=== PATIENT | male | born 1955 | race American Indian/Alaskan Native ===

== ENCOUNTER 2016-07-13 10:38 | Emergency (ER) | payer SELFPAY ==
[2016-07-13 11:34] VITALS: BP 181/107
[2016-07-13] MEDS ORDERED: NORCO 5/325 PO ONE (16:00)
[2016-07-13] MEDS ORDERED: XYLOCAINE 2% INFILTRATI ONE (16:01)
--- NOTE | 2016-07-13 16:05 | Emergency Department Report ---
Abscess Boil HPI - HPI Chief Complaint: Wound/Laceration Stated Complaint: PAINFUL LUMP ON CHEST/PUSS Time Seen by Provider: 07/13/16 15:45 Duration: >1 Week Location: Chest (left breast region) Severity: Severe History: Yes Pain, No Fever, No Purulent Drainage, No Numbness, No Foreign Body , No Previous History, No Insect Bite HPI: 60-year-old male who presents with a painful mass on his left breast area. Patient states he's had a mass there for about a year but up until a week ago it started to get bigger and painful. Patient denies any draining from the mass. Patient denies getting stronger bit by any insect. Patient describes pain as throbbing severe pain 10 out of 10 intensity that is tender to touch. Home Medications: Previous Rx's Medication Instructions Recorded Last Taken Type Atenolol [Tenormin] 25 mg PO DAILY #30 tab 11/30/14 Unknown Rx Hydrochlorothiazide [Hctz] 25 mg PO QDAY #30 tablet 11/30/14 Unknown Rx Ketoconazole 2% [Nizoral] 1 applicatio TP QDAY #15 gm 11/30/14 Unknown Rx Tolnaftate [Tinactin] 1 applicatio TP BID #133 gm 11/30/14 Unknown Rx traMADol [Ultram] 50 mg PO Q6HR PRN #20 tablet 11/30/14 Unknown Rx Cyclobenzaprine [Flexeril] 10 mg PO TID PRN #30 tablet 12/05/15 Unknown Rx oxyCODONE /ACETAMINOPHEN [Percocet 1 tab PO Q6HR PRN #30 tablet 12/05/15 Unknown Rx 5/325] Cephalexin [Keflex] 500 mg PO BID #14 capsule 07/13/16 Unknown Rx Ibuprofen [Motrin] 800 mg PO Q8HR PRN #30 tablet 07/13/16 Unknown Rx Allergies/Adverse Reactions: Allergies Allergy/AdvReac Type Severity Reaction Status Date / Time clarithromycin [From Biaxin] Allergy Unknown Verified 07/13/16 11:32 ED Review of Systems ROS: Stated complaint: PAINFUL LUMP ON CHEST/PUSS Other details as noted in HPI Constitutional: denies: chills, fever Eyes: denies: eye pain, eye discharge, vision change ENT: denies: ear pain, throat pain, dental pain, hearing loss Respiratory: denies: cough, orthopnea, shortness of breath, wheezing Cardiovascular: denies: chest pain, palpitations Endocrine: no symptoms reported Gastrointestinal: denies: abdominal pain, nausea, diarrhea Genitourinary: denies: urgency, dysuria Musculoskeletal: denies: back pain, joint swelling, arthralgia, myalgia Skin: denies: rash, lesions Neurological: denies: headache, weakness, paresthesias, confusion, abnormal gait Psychiatric: denies: anxiety, depression Hematological/Lymphatic: denies: easy bleeding, easy bruising ED Past Medical Hx - Past Medical History Hx Hypertension: Yes Hx Liver Disease: Yes (Hep C) - Surgical History Past Surgical History?: No - Social History Smoking Status: Current Every Day Smoker Substance Use Type: None - Medications Home Medications: Home Medications Medication Instructions Recorded Confirmed Last Taken Type Atenolol [Tenormin] 25 mg PO DAILY #30 tab 11/30/14 Unknown Rx Hydrochlorothiazide [Hctz] 25 mg PO QDAY #30 tablet 11/30/14 Unknown Rx Ketoconazole 2% [Nizoral] 1 applicatio TP QDAY #15 gm 11/30/14 Unknown Rx Tolnaftate [Tinactin] 1 applicatio TP BID #133 gm 11/30/14 Unknown Rx traMADol [Ultram] 50 mg PO Q6HR PRN #20 tablet 11/30/14 Unknown Rx Cyclobenzaprine [Flexeril] 10 mg PO TID PRN #30 tablet 12/05/15 Unknown Rx oxyCODONE /ACETAMINOPHEN [Percocet 1 tab PO Q6HR PRN #30 tablet 12/05/15 Unknown Rx 5/325] Cephalexin [Keflex] 500 mg PO BID #14 capsule 07/13/16 Unknown Rx Ibuprofen [Motrin] 800 mg PO Q8HR PRN #30 tablet 07/13/16 Unknown Rx ED Abscess Boil Physical Exam - Exam General: Vital signs noted. No distress. Alert and acting appropriately. Size: 5 cm Exam: Yes Tenderness, Yes Fluctuance, Yes Normal Neurologic Exam, Yes Normal Circulation, No Surrounding Cellulites/Erythema, No Lymphangitis, No Crepitation , No Heart Murmur ED Course Vital Signs 07/13/16 11:32 Temperature 98.6 F Pulse Rate 66 Respiratory 17 Rate Blood Pressure 181/107 O2 Sat by Pulse 99 Oximetry Critical care attestation.: If time is entered above; I have spent that time in minutes in the direct care of this critically ill patient, excluding procedure time. ED Medical Decision Making - Medical Decision Making 60-year-old male presents with breast abscess. ED course: Patient left and told ebony Reynoso that he would return tomorrow to get his abscess drained. Edgardo relayed the message to me. I was not aware until patient had left that he left. ED Disposition Clinical Impression: Breast abscess in male Disposition: ELOPED Is pt being admited?: No Does the pt Need Aspirin: No Condition: Stable Instructions: Abscess (ED), Abscess Incision and Drainage (ED) Prescriptions: Cephalexin [Keflex] 500 mg PO BID #14 capsule Ibuprofen [Motrin] 800 mg PO Q8HR PRN #30 tablet PRN Reason: Pain Referrals: PRIMARY CARE, [Primary Care Provider] - 3-5 Days Forms: Work/School Release Form(ED)
== END 2016-07-13 16:50 | disposition left against medical advice (07) ==
LOC: ED 10:38
DX: N61.1 Abscess of the breast and nipple (principal); I10 Essential (primary) hypertension; F17.200 Nicotine dependence, unspecified, uncomplicated
CPT/HCPCS: 99281

== ENCOUNTER 2016-10-02 22:39 | Emergency (ER) | payer SELFPAY ==
[2016-10-02 23:45] VITALS: BP 175/110
== END 2016-10-03 02:09 | disposition left against medical advice (07) ==
LOC: ED 22:39
DX: S01.91XA Laceration without foreign body of unspecified part of head, initial encounter (principal); X58.XXXA Exposure to other specified factors, initial encounter; Y93.9 Activity, unspecified; Y92.9 Unspecified place or not applicable; Y99.9 Unspecified external cause status; Z53.21 Procedure and treatment not carried out due to patient leaving prior to being seen by health care provider

== ENCOUNTER 2018-01-28 13:25 | Emergency (ER) | payer SELFPAY ==
[2018-01-28 14:07] VITALS: BP 164/98
[2018-01-28] MEDS ORDERED: NORCO 5/325 PO ONE (16:58)
--- NOTE | 2018-01-28 17:02 | Emergency Department Report ---
Chief Complaint: Pain General Stated Complaint: KNEE PAIN Time Seen by Provider: 01/28/18 16:57 - HPI History of Present Illness: 62 year-old male presents to the emergency department with a complaint of left knee pain that has been going on and getting progressively worse over the past 1-1.5 months. He denies any specific trauma to the knee. He has been trying [id number]-inowqtu medications without any relief. There is some swelling. He is able to ambulate but it makes it difficult. He does not have a primary care physician. - ROS Review of Systems: Positive for left knee pain and swelling Negative for skin color change, lesions - Exam Vital Signs: Vital Signs 01/28/18 14:02 Temperature 98.4 F Pulse Rate 90 Respiratory 16 Rate Blood Pressure 164/98 O2 Sat by Pulse 100 Oximetry Physical Exam: Left anterior knee is tender to palpation. Mild anterior swelling. Negative anterior and posterior drawer test. No laxity with valgus or varus stress. MSE screening note: Focused history and physical exam performed. Due to findings the following was ordered: X-ray of the left knee has been ordered and the patient has been given a [place] for discomfort. ED Disposition for MSE Condition: Stable Referrals: PRIMARY CARE [Primary Care Provider] - 3-5 Days
--- NOTE | 2018-01-28 19:08 | XRay Report ---
FINAL REPORT EXAM: XR KNEE 3V LT HISTORY: L Knee pain TECHNIQUE: Left knee three views PRIORS: None. FINDINGS: No fracture is identified. No dislocation seen. No evidence of joint effusion. Patella demonstrates normal positioning. No acute bony abnormality identified. IMPRESSION: Negative knee series
--- NOTE | 2018-01-28 19:50 | Emergency Department Report ---
ED General Adult HPI - General Chief complaint: Pain General Stated complaint: KNEE PAIN Time Seen by Provider: 01/28/18 16:57 Source: patient Mode of arrival: Ambulatory Limitations: Physical Limitation - History of Present Illness Initial comments: 62 year-old male presents to the emergency department with a complaint of left knee pain that has been going on and getting progressively worse over the past 1-1.5 months. He denies any specific trauma to the knee. He has been trying hwvh-esl-[id number] medications without any relief. There is some swelling. He is able to ambulate but it makes it difficult. He does not have a primary care physician. Onset/Timin -: month(s) Location: lower extremity (left knee ) Severity scale (0 -10): 9 Quality: aching, sharp Consistency: intermittent Improves with: rest Worsens with: movement, other (prolong standing sitting climbing stairs ) Associated Symptoms: denies: confusion, chest pain, cough, diaphoresis, fever/ chills, loss of appetite, malaise, nausea/vomiting, syncope, weakness Treatments Prior to Arrival: none - Related Data Previous Rx's Medication Instructions Recorded Last Taken Type Atenolol [Tenormin] 25 mg PO DAILY #30 tab 11/30/14 Unknown Rx Hydrochlorothiazide [Hctz] 25 mg PO QDAY #30 tablet 11/30/14 Unknown Rx Ketoconazole 2% [Nizoral] 1 applicatio TP QDAY #15 gm 11/30/14 Unknown Rx Tolnaftate [Tinactin] 1 applicatio TP BID #133 gm 11/30/14 Unknown Rx traMADol [Ultram] 50 mg PO Q6HR PRN #20 tablet 11/30/14 Unknown Rx Cyclobenzaprine [Flexeril] 10 mg PO TID PRN #30 tablet 12/05/15 Unknown Rx oxyCODONE /ACETAMINOPHEN [Percocet 1 tab PO Q6HR PRN #30 tablet 12/05/15 Unknown Rx 5/325] Cephalexin [Keflex] 500 mg PO BID #14 capsule 07/13/16 Unknown Rx Ibuprofen [Motrin] 800 mg PO Q8HR PRN #30 tablet 07/13/16 Unknown Rx Acetaminophen [Tylenol Extra 1,000 mg PO QID PRN #60 tablet 01/28/18 Unknown Rx Strength] Cyclobenzaprine [Flexeril] 10 mg PO TID PRN #30 tablet 01/28/18 Unknown Rx Menthol/Camphor [[place] 1 applic TP TID PRN #1 tube 01/28/18 Unknown Rx Ointment] Allergies Allergy/AdvReac Type Severity Reaction Status Date / Time clarithromycin [From Biaxin] Allergy Unknown Verified 07/13/16 11:32 ED Review of Systems ROS: Stated complaint: KNEE PAIN Other details as noted in HPI Constitutional: denies: chills, fever Eyes: denies: eye pain, eye discharge, vision change ENT: denies: ear pain, throat pain Respiratory: denies: cough, shortness of breath, wheezing Cardiovascular: denies: chest pain, palpitations Endocrine: no symptoms reported Gastrointestinal: denies: abdominal pain, nausea, diarrhea Genitourinary: denies: urgency, dysuria Musculoskeletal: arthralgia, myalgia Skin: denies: rash, lesions Neurological: denies: headache, weakness, paresthesias Psychiatric: denies: anxiety, depression Hematological/Lymphatic: denies: easy bleeding, easy bruising ED Past Medical Hx - Past Medical History Hx Hypertension: Yes Hx Liver Disease: Yes (Hep C) - Social History Smoking Status: Current Every Day Smoker Substance Use Type: None - Medications Home Medications: Home Medications Medication Instructions Recorded Confirmed Last Taken Type Atenolol [Tenormin] 25 mg PO DAILY #30 tab 11/30/14 Unknown Rx Hydrochlorothiazide [Hctz] 25 mg PO QDAY #30 tablet 11/30/14 Unknown Rx Ketoconazole 2% [Nizoral] 1 applicatio TP QDAY #15 gm 11/30/14 Unknown Rx Tolnaftate [Tinactin] 1 applicatio TP BID #133 gm 11/30/14 Unknown Rx traMADol [Ultram] 50 mg PO Q6HR PRN #20 tablet 11/30/14 Unknown Rx Cyclobenzaprine [Flexeril] 10 mg PO TID PRN #30 tablet 12/05/15 Unknown Rx oxyCODONE /ACETAMINOPHEN [Percocet 1 tab PO Q6HR PRN #30 tablet 12/05/15 Unknown Rx 5/325] Cephalexin [Keflex] 500 mg PO BID #14 capsule 07/13/16 Unknown Rx Ibuprofen [Motrin] 800 mg PO Q8HR PRN #30 tablet 07/13/16 Unknown Rx Acetaminophen [Tylenol Extra 1,000 mg PO QID PRN #60 tablet 01/28/18 Unknown Rx Strength] Cyclobenzaprine [Flexeril] 10 mg PO TID PRN #30 tablet 01/28/18 Unknown Rx Menthol/Camphor [[place] 1 applic TP TID PRN #1 tube 01/28/18 Unknown Rx Ointment] ED Physical Exam - General Limitations: Physical Limitation General appearance: alert, in no apparent distress - Head Head exam: Present: atraumatic, normocephalic - Eye Eye exam: Present: normal appearance - ENT ENT exam: Present: mucous membranes moist - Neck Neck exam: Present: normal inspection - Respiratory Respiratory exam: Present: normal lung sounds bilaterally. Absent: respiratory distress - Cardiovascular Cardiovascular Exam: Present: regular rate, normal rhythm. Absent: systolic murmur, diastolic murmur, rubs, gallop - GI/Abdominal GI/Abdominal exam: Present: soft, normal bowel sounds - Rectal Rectal exam: Present: deferred - Extremities Exam Extremities exam: Present: full ROM, tenderness (left lateral knee ), normal capillary refill. Absent: pedal edema, joint swelling, calf tenderness - Expanded Lower Extremity Exam Left Knee exam: Present: normal inspection, full ROM, tenderness (left lateral knee ) , pain w/ pronation/supination, full knee extension. Absent: swelling, abrasion , laceration, ecchymosis, deformity, crepidus, dislocation, erythema, effusion, posterior draw sign, pain/laxity with valgus, pain/laxity with varus Lower Leg exam: Present: normal inspection, full ROM Ankle exam: Present: normal inspection, full ROM Foot/Toe exam: Present: normal inspection, full ROM Neuro vascular tendon exam: Present: no vascular compromise. Absent: pulse deficit, abnormal cap refill, motor deficit, sensory deficit, tendon deficit, extremity cold to touch, pallor, abnormal 2-point discrimination, decreased fine /light touch, foot drop, peroneal nerve deficit, significant pain with passive ROM of distal joint Gait: Positive: observed and normal - Back Exam Back exam: Present: normal inspection - Neurological Exam Neurological exam: Present: alert, oriented X3, CN II-XII intact, normal gait, reflexes normal. Absent: motor sensory deficit - Psychiatric Psychiatric exam: Present: normal affect, normal mood - Skin Skin exam: Present: warm, dry, intact, normal color. Absent: rash ED Course Vital Signs 01/28/18 14:02 Temperature 98.4 F Pulse Rate 90 Respiratory 16 Rate Blood Pressure 164/98 O2 Sat by Pulse 100 Oximetry ED Medical Decision Making - Medical Decision Making This is a knee strain x-rays negative no effusion though fracture no soft tissue abnormality plan Jayesh wrap NSAIDs and muscle relaxants patient given the exercises will follow up with orthopedic in 2-3 days Rice therapy patient verbalizes understanding and agreement discharge plan will be DC'd home in stable condition Critical care attestation.: If time is entered above; I have spent that time in minutes in the direct care of this critically ill patient, excluding procedure time. ED Disposition Clinical Impression: Strain of left knee Qualifiers: Encounter type: initial encounter Qualified Code(s): S86.912A - Strain of unspecified muscle(s) and tendon(s) at lower leg level, left leg, initial encounter Disposition: DC-01 TO HOME OR SELFCARE Is pt being admited?: No Does the pt Need Aspirin: No Condition: Good Instructions: Knee Pain (ED) Prescriptions: Acetaminophen [Tylenol Extra Strength] 1,000 mg PO QID PRN #60 tablet PRN Reason: Pain , Severe (7-10) Cyclobenzaprine [Flexeril] 10 mg PO TID PRN #30 tablet PRN Reason: Muscle Spasm Menthol/Camphor [[place] Ointment] 1 applic TP TID PRN #1 tube PRN Reason: pain Referrals: MUNDO HEARN MD [Staff Physician] - 3-5 Days Forms: Work/School Release Form(ED) Time of Disposition: 19:52
== END 2018-01-28 20:07 | disposition home or self-care (01) ==
LOC: ED 13:25
DX: S86.912A Strain of unspecified muscle(s) and tendon(s) at lower leg level, left leg, initial encounter (principal); I10 Essential (primary) hypertension; F17.200 Nicotine dependence, unspecified, uncomplicated; Z88.1 Allergy status to other antibiotic agents; Z86.19 Personal history of other infectious and parasitic diseases; X58.XXXA Exposure to other specified factors, initial encounter; Y93.89 Activity, other specified; Y92.89 Other specified places as the place of occurrence of the external cause; Y99.8 Other external cause status
CPT/HCPCS: 99283

== ENCOUNTER 2018-04-28 16:02 | Emergency (ER) | payer SELFPAY ==
--- NOTE | 2018-04-28 18:23 | Emergency Department Report ---
Chief Complaint: Skin/Abscess/Foreign Body Stated Complaint: LARGE INFECTION ON CHEST Time Seen by Provider: 04/28/18 18:20 - HPI History of Present Illness: Mr. Hanley is has left chest wall abscess. Awaiting from oncoming provider to provide definitive treatment. - Exam Vital Signs: Vital Signs 04/28/18 16:08 Temperature 97.3 F L Pulse Rate 87 Respiratory 20 Rate Blood Pressure 162/100 O2 Sat by Pulse 98 Oximetry MSE screening note: Focused history and physical exam performed. Due to findings the following was ordered: ED Disposition for MSE Condition: Stable Referrals: PRIMARY CARE, [Primary Care Provider] - 3-5 Days
[2018-04-28] MEDS ORDERED: NORCO 5/325 PO ONE (19:25)
--- NOTE | 2018-04-28 19:48 | Emergency Department Report ---
Abscess Boil HPI - HPI Chief Complaint: Skin/Abscess/Foreign Body Stated Complaint: LARGE INFECTION ON CHEST Time Seen by Provider: 04/28/18 18:20 History: Yes Pain, Yes Purulent Drainage, No Fever, No Numbness, No Foreign Body , No Previous History, No Insect Bite HPI: 62-year-old -[place] male comes in complaining of abscess to the chest stated started months ago but the last 2 weeks as gotten worse. Patient denies any fever or chills. Patient reports a past medical history of hypertension reports that he compliant with all medications. He does have a primary care provider. He does have a history of hep C. Home Medications: Previous Rx's Medication Instructions Recorded Last Taken Type Atenolol [Tenormin] 25 mg PO DAILY #30 tab 11/30/14 Unknown Rx Ketoconazole 2% [Nizoral] 1 applicatio TP QDAY #15 gm 11/30/14 Unknown Rx Tolnaftate [Tinactin] 1 applicatio TP BID #133 gm 11/30/14 Unknown Rx hydroCHLOROthiazide [Hctz] 25 mg PO QDAY #30 tablet 11/30/14 Unknown Rx traMADol [Ultram] 50 mg PO Q6HR PRN #20 tablet 11/30/14 Unknown Rx Cyclobenzaprine [Flexeril] 10 mg PO TID PRN #30 tablet 12/05/15 Unknown Rx oxyCODONE /ACETAMINOPHEN [Percocet 1 tab PO Q6HR PRN #30 tablet 12/05/15 Unknown Rx 5/325] Acetaminophen [Tylenol Extra 1,000 mg PO QID PRN #60 tablet 01/28/18 Unknown Rx Strength] Cyclobenzaprine [Flexeril] 10 mg PO TID PRN #30 tablet 01/28/18 Unknown Rx Menthol/Camphor [[place] 1 applic TP TID PRN #1 tube 01/28/18 Unknown Rx Ointment] Acetaminophen/Codeine [Tylenol 1 tab PO Q6H PRN #12 tab 03/18/18 Unknown Rx /Codeine # 3 tab] Prednisone [predniSONE 10 mg 10 mg PO .TAPER #1 tab.ds.pk 03/18/18 Unknown Rx (6-Day Pack, 21 Tabs)] hydroCHLOROthiazide [HCTZ] 25 mg PO QDAY #30 tablet 03/18/18 Unknown Rx Cephalexin [Keflex] 500 mg PO BID #20 capsule 04/28/18 Unknown Rx Ibuprofen [Motrin 800 MG tab] 800 mg PO Q8HR PRN #30 tablet 04/28/18 Unknown Rx Allergies/Adverse Reactions: Allergies Allergy/AdvReac Type Severity Reaction Status Date / Time clarithromycin [From Biaxin] Allergy Unknown Verified 04/28/18 16:08 ED Review of Systems ROS: Stated complaint: LARGE INFECTION ON CHEST Other details as noted in HPI Comment: All other systems reviewed and negative Skin: lesions ED Past Medical Hx - Past Medical History Hx Hypertension: Yes Hx Liver Disease: Yes (Hep C) Additional medical history: recurrent left knee pain - Social History Smoking Status: Current Every Day Smoker Substance Use Type: Alcohol - Medications Home Medications: Home Medications Medication Instructions Recorded Confirmed Last Taken Type Atenolol [Tenormin] 25 mg PO DAILY #30 tab 11/30/14 Unknown Rx Ketoconazole 2% [Nizoral] 1 applicatio TP QDAY #15 gm 11/30/14 Unknown Rx Tolnaftate [Tinactin] 1 applicatio TP BID #133 gm 11/30/14 Unknown Rx hydroCHLOROthiazide [Hctz] 25 mg PO QDAY #30 tablet 11/30/14 Unknown Rx traMADol [Ultram] 50 mg PO Q6HR PRN #20 tablet 11/30/14 Unknown Rx Cyclobenzaprine [Flexeril] 10 mg PO TID PRN #30 tablet 12/05/15 Unknown Rx oxyCODONE /ACETAMINOPHEN [Percocet 1 tab PO Q6HR PRN #30 tablet 12/05/15 Unknown Rx 5/325] Acetaminophen [Tylenol Extra 1,000 mg PO QID PRN #60 tablet 01/28/18 Unknown Rx Strength] Cyclobenzaprine [Flexeril] 10 mg PO TID PRN #30 tablet 01/28/18 Unknown Rx Menthol/Camphor [[place] 1 applic TP TID PRN #1 tube 01/28/18 Unknown Rx Ointment] Acetaminophen/Codeine [Tylenol 1 tab PO Q6H PRN #12 tab 03/18/18 Unknown Rx /Codeine # 3 tab] Prednisone [predniSONE 10 mg 10 mg PO .TAPER #1 tab.ds.pk 03/18/18 Unknown Rx (6-Day Pack, 21 Tabs)] hydroCHLOROthiazide [HCTZ] 25 mg PO QDAY #30 tablet 03/18/18 Unknown Rx Cephalexin [Keflex] 500 mg PO BID #20 capsule 04/28/18 Unknown Rx Ibuprofen [Motrin 800 MG tab] 800 mg PO Q8HR PRN #30 tablet 04/28/18 Unknown Rx ED Abscess Boil Physical Exam - Exam General: Vital signs noted. No distress. Alert and acting appropriately. Size: 2 cm Exam: Yes Tenderness, Yes Fluctuance, Yes Surrounding Cellulites/Erythema, Yes Normal Neurologic Exam, Yes Normal Circulation, No Lymphangitis, No Crepitation , No Heart Murmur I & D Note - I & D Note I & D Note: DATE OF PROCEDURE: 04/28/2018. PREOPERATIVE DIAGNOSES: 1.soft tissue infection chest. POSTOPERATIVE DIAGNOSES: 1.Chest soft tissue infection. Infection appeared to be contained to subcutaneous tissue and there was no evidence of necrotizing soft tissue infection including myonecrosis. OPERATION PERFORMED: Incision and drainage of ..... soft tissue abscess. Provider: Adin Rodgers PA-C. ANESTHESIA: Local. DESCRIPTION OF PROCEDURE: The patient was prepped and draped. Seropurulent, somewhat bloody fluid was noted. The infection appeared contained to a harika- ball-sized area in the subcutaneous tissues above the fascia. There was no evidence of myonecrosis, penetration of the fascia or significant extent along the fascia of the infection. We cleaned the area with Betadine. Expressed purlent thick discharge. Dry dressings were applied. The patient appeared to tolerate the procedure well. ED Course Vital Signs 04/28/18 16:08 Temperature 97.3 F L Pulse Rate 87 Respiratory 20 Rate Blood Pressure 162/100 O2 Sat by Pulse 98 Oximetry Critical care attestation.: If time is entered above; I have spent that time in minutes in the direct care of this critically ill patient, excluding procedure time. ED Medical Decision Making - Medical Decision Making Patient has been evaluated by this provider fast track. [place] 5/325 mg was given for pain management Abscess was drained by protocol measures. We'll place patient on antibiotics and pain medication Discussed with patient to follow up with his primary care provider next 3-5 days. Patient verbalizes understanding ED Disposition Clinical Impression: Cutaneous abscess of chest wall Disposition: DC-01 TO HOME OR SELFCARE Is pt being admited?: No Does the pt Need Aspirin: No Condition: Stable Instructions: Abscess (ED) Additional Instructions: Complete antibiotics as prescribed. Take pain medication as needed. I recommend following up with her primary care provider in next 3-5 days. Prescriptions: Cephalexin [Keflex] 500 mg PO BID #20 capsule Ibuprofen [Motrin 800 MG tab] 800 mg PO Q8HR PRN #30 tablet PRN Reason: Pain Referrals: PRIMARY CARE, [Primary Care Provider] - 3-5 Days Forms: Work/School Release Form(ED)
[2018-04-28 20:15] VITALS: BP 158/98
== END 2018-04-28 20:14 | disposition home or self-care (01) ==
LOC: ED 16:02
DX: L02.213 Cutaneous abscess of chest wall (principal); I10 Essential (primary) hypertension; F17.200 Nicotine dependence, unspecified, uncomplicated; Z88.1 Allergy status to other antibiotic agents
CPT/HCPCS: 99282

== ENCOUNTER 2019-09-12 12:30 | Emergency (ER) | payer SELFPAY ==
--- NOTE | 2019-09-12 14:20 | Event Note ---
ED Screening Note Date of service: 09/12/19 Time: 14:17 ED Screening Note: This is a 63 y.o. M. that presents to the ER with cough and congestion for 3 weeks. PMH of HTN and Hepatitis C Taking OTC medication with no change in symptoms This initial assessment/diagnostic orders/clinical plan/treatment(s) is/are subject to change based on patients health status, clinical progression and re- assessment by fellow clinical providers in the ED. Further treatment and workup at subsequent clinical providers discretion. Patient/guardian urged not to elope from the ED as their condition may be serious if not clinically assessed and managed. Initial orders include: ACC for further evaluation.
[2019-09-12 14:24] VITALS: BP 180/100
[2019-09-12] MEDS ORDERED: guaiFENesin 100 MG/5 ML ORAL LIQD PO ONE (15:45)
--- NOTE | 2019-09-12 15:47 | Emergency Department Report ---
Minor Respiratory - HPI Chief Complaint: Upper Respiratory Infection Stated Complaint: CHEST APINS, COUGHING,VOMITTING Time Seen by Provider: 09/12/19 14:16 Minor Respiratory: Yes Able to Tolerate Fluids, Yes Cough, No Rhinorrhea, No Sore Throat, No Ear Pain, No Sick Contacts, No Hemoptysis, No Chest Pain, No Shortness of Breath, No Fever Other History: This is a 63-year-old male history of hypertension presents the E D complaining of coughing for the past 3 weeks with no relief. Patient states has not been taking any medication. 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 He denies fever/chills/nausea vomiting/shortness of breath or chest pain ED Review of Systems ROS: Stated complaint: CHEST APINS, COUGHING,VOMITTING Other details as noted in HPI Comment: All other systems reviewed and negative ED Past Medical Hx - Past Medical History Previous Medical History?: Yes Hx Hypertension: Yes Hx Liver Disease: Yes (Hep C) Additional medical history: recurrent left knee pain - Surgical History Past Surgical History?: No - Social History Smoking Status: Current Every Day Smoker Substance Use Type: None - Medications Home Medications: Home Medications Medication Instructions Recorded Confirmed Last Taken Type Ketoconazole 2% [Nizoral] 1 applicatio TP QDAY #15 gm 11/30/14 Unknown Rx Tolnaftate [Tinactin] 1 applicatio TP BID #133 gm 11/30/14 Unknown Rx atenoloL [Tenormin] 25 mg PO DAILY #30 tab 11/30/14 Unknown Rx hydroCHLOROthiazide [Hctz] 25 mg PO QDAY #30 tablet 11/30/14 Unknown Rx traMADoL [Ultram] 50 mg PO Q6HR PRN #20 tablet 11/30/14 Unknown Rx Cyclobenzaprine [Flexeril] 10 mg PO TID PRN #30 tablet 12/05/15 Unknown Rx oxyCODONE /ACETAMINOPHEN [Percocet 1 tab PO Q6HR PRN #30 tablet 12/05/15 Unknown Rx 5/325] Acetaminophen [Tylenol Extra 1,000 mg PO QID PRN #60 tablet 01/28/18 Unknown Rx Strength] Cyclobenzaprine [Flexeril] 10 mg PO TID PRN #30 tablet 01/28/18 Unknown Rx Menthol/Camphor [[place] 1 applic TP TID PRN #1 tube 01/28/18 Unknown Rx Ointment] Acetaminophen/Codeine [Tylenol 1 tab PO Q6H PRN #12 tab 03/18/18 Unknown Rx /Codeine # 3 tab] Prednisone [predniSONE 10 mg 10 mg PO .TAPER #1 tab.ds.pk 03/18/18 Unknown Rx (6-Day Pack, 21 Tabs)] hydroCHLOROthiazide [HCTZ] 25 mg PO QDAY #30 tablet 03/18/18 Unknown Rx Cephalexin [Keflex] 500 mg PO BID #20 capsule 04/28/18 Unknown Rx Ibuprofen [Motrin 800 MG tab] 800 mg PO Q8HR PRN #30 tablet 04/28/18 Unknown Rx Acetamin/Codeine 120-12Mg/5 ml 10 ml PO BID PRN #80 ml 09/12/19 Unknown Rx [Tylenol/Codeine] Albuterol INH(or & Nicu Only) 2 puff IH QID PRN #8.5 gram 09/12/19 Unknown Rx [ProAir HFA Inhaler] Benzonatate [Tessalon Perles] 100 mg PO Q8HR #30 capsule 09/12/19 Unknown Rx Minor Respiratory Exam - Exam General: Vital signs noted. No distress. Alert and acting appropriately. HEENT: Yes Moist Mucous Membranes, No Pharyngeal Erythema, No Pharyngeal Exudates, No Rhinorrhea, No Conjuctival Injection, No Frontal Tenderness, No Maxillary Tenderness Ear: Neither TM Bulge, Neither TM Erythema, Neither EAC Pain, Neither EAC Discharge Neck: Yes Supple, No Adenopathy Lungs: Yes Good Air Exchange, No Wheezes, No Ronchi, No Stridor, No Cough, No Labored Respirations, No Retractions, No Use of Accessory Muscles, No Other Abnormal Lung Sounds Heart: Yes Regular, No Murmur Abdomen: Yes Normal Bowel Sounds, No Tenderness, No Peritoneal Signs Skin: No Rash, No Edema Neurologic: Alert and oriented, no deficits. Musculoskeletal: Unremarkable. ED Course Vital Signs 09/12/19 14:15 Temperature 98.0 F Pulse Rate 85 Respiratory 20 Rate Blood Pressure 180/100 O2 Sat by Pulse 97 Oximetry ED Medical Decision Making - Radiology Data Radiology results: report reviewed, image reviewed Fluoro Time In Minutes: CHEST 2 VIEWS INDICATION: MAIN: cough; pt reports cough, chills, non-productive cough x2 weeks . COMPARISON: None FINDINGS: Support devices: None. Heart: Within normal limits. Lungs/pleura: No acute air space or interstitial disease. No pneumothorax. Additional findings: None. IMPRESSION: 1. No acute findings. Signer Name: Dirk Escalante MD Signed: 09/12/2019 3:45 PM Workstation Name: [id number] Transcribed By: OMAR Dictated By: Dirk Escalante MD Electronically Authenticated By: Dirk Escalante MD Signed Date/Time: 09/12/19 1545 - Medical Decision Making 63-year-old male presents with bronchitis/upper respiratory symptoms no fever during the ED stay. Discussed with mother symptomatic relief with [id number] medications. Discussed continue Tylenol and Motrin as needed for fever and pain. Discussed increase fluids and diet intake. Discussed rest much needed. Discussed daily vitamin C for immune booster. Discussed follow-up with primary care physician in 3-5 days. Patient verbally states she understands and will comply the following instructions and follow-up Vital signs stable. Patient is in no acute distress Critical care attestation.: If time is entered above; I have spent that time in minutes in the direct care of this critically ill patient, excluding procedure time. ED Disposition Clinical Impression: Bronchitis, Upper respiratory infection Disposition: DC-01 TO HOME OR SELFCARE Is pt being admited?: No Does the pt Need Aspirin: No Condition: Stable Instructions: Chronic Bronchitis (ED) Additional Instructions: Make sure to follow up with the primary care physician as discussed. Take all your medications as you've been prescribed. If you have any worsening symptoms or develop new symptoms please return to ED immediately. Prescriptions: Albuterol INH(or & Nicu Only) [ProAir HFA Inhaler] 2 puff IH QID PRN #8.5 gram PRN Reason: Shortness Of Breath Benzonatate [Tessalon Perles] 100 mg PO Q8HR #30 capsule Acetamin/Codeine 120-12Mg/5 ml [Tylenol/Codeine] 10 ml PO BID PRN #80 ml PRN Reason: Pain Referrals: PRIMARY CARE, [Primary Care Provider] - 3-5 Days [facility] [Outside] - 3-5 Days [facility] [Outside] - 3-5 Days Forms: Accompanied Note, Work/School Release Form(ED) Time of Disposition: 16:35
== END 2019-09-12 17:07 | disposition home or self-care (01) ==
LOC: ED 12:30
DX: J40 Bronchitis, not specified as acute or chronic (principal); J06.9 Acute upper respiratory infection, unspecified
CPT/HCPCS: 71046

== ENCOUNTER 2020-04-29 12:31 | Inpatient (IN) | payer OTHER ==
--- NOTE | 2020-04-29 13:20 | XRay Report ---
CHEST 2 VIEWS INDICATION: Chest Pain. COMPARISON: 10/17/19 FINDINGS: SUPPORT DEVICES: None. HEART: Within normal limits. LUNGS/PLEURA: No acute air space or interstitial disease. No pneumothorax. ADDITIONAL FINDINGS: None. IMPRESSION: 1. No acute findings. Signer Name: Dirk Escalante MD Signed: 04/29/2020 1:16 PM Workstation Name: [id number]
[2020-04-29 14:02] LABS: Basophils % (Auto) 0.5 % (0.0-1.8); Eosinophils # (Auto) 0.4 K/mm3 (0.0-0.4); Eosinophils % (Auto) 5.2 % (0.0-4.3); Hematocrit 33.6 % (35.5-45.6); Hemoglobin 10.7 gm/dl (11.8-15.2); Lymphocytes % (Auto) 42.5 % (13.4-35.0); Mean Corpuscular HGB Conc 32 % (32-34); Mean Corpuscular Volume 78 fl (84-94); Monocytes # (Auto) 0.8 K/mm3 (0.0-0.8); Monocytes % (Auto) 10.9 % (0.0-7.3); Platelet Count 315 K/mm3 (140-440); Red Cell Distribution Width 17.1 % (13.2-15.2)
[2020-04-29 14:22] LABS: BUN/Creatinine Ratio 10; Blood Urea Nitrogen 9 mg/dL (9-20); Calcium 9.4 mg/dL (8.4-10.2); Hemolysis Index 4
[2020-04-29] MEDS ORDERED: NITROGLYCERIN 2% OINT 1 GM TP ONE (14:47)
[2020-04-29] MEDS ORDERED: HEPARIN 10,000 UNITS/10 ML VIAL IV ONE (14:48)
--- NOTE | 2020-04-29 14:52 | Emergency Department Report ---
ED Chest Pain HPI - General Chief Complaint: Chest Pain Stated Complaint: CHEST PAINS Time Seen by Provider: 04/29/20 14:31 Source: patient Mode of arrival: Ambulatory Limitations: No Limitations - History of Present Illness Initial Comments: This is a 64-year-old -English male who presents to the emergency department from an urgent care with a complaint of midsternal chest pain that has been going on since the middle of last night while he was watching television. Patient went to the urgent care, not for his chest pain, but to take a Covid test as he says that his "grandbaby" may have been exposed to someone with Covid. Patient denies any cough, fever. While at the urgent care he explained that he was having chest pain from the previous evening. They did an EKG and told him that he needs to go to the emergency department. He was given a full dose aspirin. Patient has a past medical history of coronary artery disease with cardiac stents, hypertension, hepatitis C, tobacco use. He says that he follows with Dr. Harvey for cardiology. His primary care physician is a Dr. Villa. - Related Data Home Medications Medication Instructions Recorded Confirmed Last Taken Acetaminophen [Tylenol] 2 tab PO PRN PRN 10/17/19 10/17/19 10/13/19 08:00 Previous Rx's Medication Instructions Recorded Last Taken Type Ibuprofen [Motrin 800 MG tab] 800 mg PO Q8HR PRN #30 tablet 04/28/18 10/13/19 08:00 Rx Albuterol Mdi (or & Nicu Only) 2 puff IH QID PRN #8.5 gram 09/12/19 Unknown Rx [ProAir HFA Inhaler] Benzonatate [Tessalon Perles] 100 mg PO Q8HR #30 capsule 09/12/19 10/13/19 08:00 Rx Aspirin EC [Ecotrin] 325 mg PO QDAY #30 tablet. 10/17/19 Unknown Rx AtorvaSTATin [Lipitor] 80 mg PO QHS #30 tablet 10/17/19 Unknown Rx Clopidogrel [Plavix] 75 mg PO QDAY #30 tablet 10/17/19 Unknown Rx Nicotine [Habitrol] 14 mg TD QDAY #14 patch 10/17/19 Unknown Rx Valsartan [Diovan] 160 mg PO Q12H #60 tablet 10/17/19 Unknown Rx carvediloL [Coreg] 12.5 mg PO BID #60 tablet 10/17/19 Unknown Rx traMADoL [Ultram 50 MG tab] 50 mg PO Q6H PRN #20 tablet 10/17/19 Unknown Rx Allergies Allergy/AdvReac Type Severity Reaction Status Date / Time clarithromycin [From Biaxin] Allergy Unknown Verified 04/28/18 16:08 Heart Score - HEART Score History: Moderately suspicious EKG: Normal Age: 45-65 Risk factors: > 3 risk factors or hx of atherosclerotic disease Troponin: > 3x normal limit HEART Score: 6 - Critical Actions Critical Actions: 4-6 pts:12-16.6% risk of adverse cardiac event. Should be admitted ED Review of Systems ROS: Stated complaint: CHEST PAINS Other details as noted in HPI Comment: All other systems reviewed and negative Constitutional: denies: chills, fever Eyes: denies: eye pain, vision change ENT: denies: ear pain, throat pain Respiratory: denies: cough, wheezing Cardiovascular: chest pain. denies: palpitations Gastrointestinal: denies: abdominal pain, vomiting Genitourinary: denies: dysuria, discharge Musculoskeletal: denies: back pain, arthralgia Skin: denies: rash, lesions Neurological: denies: headache, weakness ED Past Medical Hx - Past Medical History Previous Medical History?: Yes Hx Hypertension: Yes Hx Heart Attack/AMI: Yes Hx Liver Disease: Yes (Hep C) Additional medical history: recurrent left knee pain - Surgical History Past Surgical History?: Yes Hx Coronary Stent: Yes - Social History Smoking Status: Never Smoker Substance Use Type: None - Medications Home Medications: Home Medications Medication Instructions Recorded Confirmed Last Taken Type Ibuprofen [Motrin 800 MG tab] 800 mg PO Q8HR PRN #30 tablet 04/28/18 10/17/19 10/13/19 08:00 Rx Albuterol Mdi (or & Nicu Only) 2 puff IH QID PRN #8.5 gram 09/12/19 10/17/19 Unknown Rx [ProAir HFA Inhaler] Benzonatate [Tessalon Perles] 100 mg PO Q8HR #30 capsule 09/12/19 10/17/19 10/13/19 08:00 Rx Acetaminophen [Tylenol] 2 tab PO PRN PRN 10/17/19 10/17/19 10/13/19 08:00 History Aspirin EC [Ecotrin] 325 mg PO QDAY #30 tablet. 10/17/19 Unknown Rx AtorvaSTATin [Lipitor] 80 mg PO QHS #30 tablet 10/17/19 Unknown Rx Clopidogrel [Plavix] 75 mg PO QDAY #30 tablet 10/17/19 Unknown Rx Nicotine [Habitrol] 14 mg TD QDAY #14 patch 10/17/19 Unknown Rx Valsartan [Diovan] 160 mg PO Q12H #60 tablet 10/17/19 Unknown Rx carvediloL [Coreg] 12.5 mg PO BID #60 tablet 10/17/19 Unknown Rx traMADoL [Ultram 50 MG tab] 50 mg PO Q6H PRN #20 tablet 10/17/19 Unknown Rx ED Physical Exam - General Limitations: No Limitations - Other Other exam information: GENERAL: The patient is well-developed well-nourished. HENT: Normocephalic. Atraumatic. Patient has moist mucous membranes. EYES: Extraocular motions are intact. NECK: Supple. Trachea is midline. CHEST/LUNGS: Clear to auscultation. There is no respiratory distress noted. HEART/CARDIOVASCULAR: Regular. There is no tachycardia. There is no murmur. ABDOMEN: Abdomen is soft, nontender. Patient has normal bowel sounds. SKIN: Skin is warm and dry. NEURO: The patient is awake, alert, and oriented. The patient is cooperative. Normal speech. MUSCULOSKELETAL: There is no tenderness or deformity. There is no limitation range of motion. ED Course Vital Signs 04/29/20 12:31 Temperature 98.4 F Pulse Rate 59 L Respiratory 18 Rate Blood Pressure 184/110 O2 Sat by Pulse 99 Oximetry - Reevaluation(s) Reevaluation #1: 04/29/20 14:53 Lab Results 04/29/20 04/29/20 Range/Units 13:39 13:39 WBC 6.9 (4.5-11.0) K/mm3 RBC 4.30 (3.65-5.03) M/mm3 Hgb 10.7 L (11.8-15.2) gm/dl Hct 33.6 L (35.5-45.6) % MCV 78 L (84-94) fl MCH 25 L (28-32) pg MCHC 32 (32-34) % RDW 17.1 H (13.2-15.2) % Plt Count 315 (140-440) K/mm3 Lymph % (Auto) 42.5 H (13.4-35.0) % [place] % (Auto) 10.9 H (0.0-7.3) % Eos % (Auto) 5.2 H (0.0-4.3) % Baso % (Auto) 0.5 (0.0-1.8) % Lymph # (Auto) 3.0 (1.2-5.4) K/mm3 [place] # (Auto) 0.8 (0.0-0.8) K/mm3 Eos # (Auto) 0.4 (0.0-0.4) K/mm3 Baso # (Auto) 0.0 (0.0-0.1) K/mm3 Seg Neutrophils % 40.9 (40.0-70.0) % Seg Neutrophils # 2.8 (1.8-7.7) K/mm3 Sodium 140 (137-145) mmol/L Potassium 4.8 (3.6-5.0) mmol/L Chloride 101.2 (98-107) mmol/L Carbon Dioxide 25 (22-30) mmol/L Anion Gap 19 mmol/L BUN 9 (9-20) mg/dL Creatinine 0.9 (0.8-1.3) mg/dL Estimated GFR > 60 ml/min BUN/Creatinine Ratio 10 % Glucose 96 (75-100) mg/dL Calcium 9.4 (8.4-10.2) mg/dL Troponin T 0.284 H* (0.00-0.029) ng/mL - Consultations Consultation #1: 04/29/20 15:39 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 Harvey. He is aware of the patient's presentation, elevated troponin level, and will see the patient as a consult. CONOR score - Conor Score Age > 65: (0) No Aspirin use within the Past 7 Days: (0) No 3 or more CAD Risk Factors: (1) Yes 2 or more Angina events in past 24 hrs: (1) Yes Known CAD with more than 50% Stenosis: (1) Yes Elevated Cardiac Markers: (0) No ST Deviation Greater than 0.5mm: (0) No CONOR Score: 3 ED Medical Decision Making - Lab Data Result diagrams: 04/29/20 13:39 04/29/20 13:39 - EKG Data -: EKG Interpreted by Me EKG shows normal: sinus rhythm, axis, intervals, QRS complexes, ST-T waves Rate: normal - EKG Data When compared to previous EKG there are: no significant change Interpretation: unchanged when compared t (10/17/19) - Radiology Data Radiology results: image reviewed interpreted by me: Chest x-ray does not show any acute process. There are no pleural effusions, obvious pneumonia and there is no pneumothorax. No significant cardiomegaly. - Medical Decision Making This patient presents with some midsternal throbbing chest pain that has been going on since last night. EKG does not have any morphology consistent with ST elevation myocardial infarction. Chest x-ray does not show any pneumonia, pleural effusions, pneumothorax, focal consolidation, or any acute process. The majority of the patient's labs are unremarkable, except for the initial troponin is elevated at 0.24 showing an NSTEMI. Patient has been given Nitropaste for his chest pain and blood pressure, and will be started on a heparin drip. Cardiology has been contacted and consulted. Patient has been accepted for admission by the hospitalist, Dr. Larios. Critical Care Time: Yes Critical care time in (mins) excluding proc time.: 35 Critical care attestation.: If time is entered above; I have spent that time in minutes in the direct care of this critically ill patient, excluding procedure time. Critical care time is been spent on this patient in doing his initial evaluation, multiple reevaluations, ordering and interpretation of labs and i pushpa, cardiology consultation, discussion with the hospitalist, nitroglycerin paste and heparin drip for ACS. Critical Care Time: 35 minutes ED Disposition Clinical Impression: NSTEMI (non-ST elevated myocardial infarction), Stented coronary artery Hypertension Qualifiers: Hypertension type: essential hypertension Qualified Code(s): I10 - Essential ( primary) hypertension CAD (coronary artery disease) Qualifiers: Coronary Disease-Associated Artery/Lesion type: unspecified vessel or lesion type [place] vs. transplanted heart: [place] heart Associated angina: with unspecified angina Qualified Code(s): I25.119 - Atherosclerotic heart disease of [place] coronary artery with unspecified angina pectoris Disposition: OP ADMIT IP TO THIS HOSP Is pt being admited?: Yes Condition: Serious Time of Disposition: 15:38
[2020-04-29 15:20] LABS: Chol/HDL Ratio 2.13 %; HDL Cholesterol 60 mg/dL (40-59); LDL Cholesterol,Direct 56 mg/dL (50-130)
[2020-04-29 15:42] LABS: INR 1.03 (0.87-1.13)
[2020-04-29 15:43] LABS: Partial Thromboplastin Time 27.9 Sec. (24.2-36.6)
[2020-04-29] MEDS: HEPARIN/ 0.45% NACL DRIP 25,000 UNIT/500 ML BAG IV SCH (17:20)
--- NOTE | 2020-04-29 18:48 | Consultation ---
History of Present Illness Consult date: 04/29/20 Consult reason: chest pain, elevated troponin History of present illness: The patient is a 64-year-old man with coronary artery disease. 6 months ago, he underwent coronary stenting of the mid circumflex artery, and has been fully compliant with his dual oral antiplatelet therapy. He presents to the hospital emergency room today with complaints of chest pain, ECG was normal sinus rhythm, normal ECG. The cardiac troponin levels were measured and were 0.27, unchanged on 2 serial measurements. He is admitted to the hospital and cardiac consultation was requested. In addition to his chest pain complaint, the patient was at an ambulatory clinic early this morning where he states that he requested and got a COVID-19 test, due to Covid exposure of a close family member in his household. The test was taken this morning, and the results have not been communicated to him as of this moment. Past History Past Medical History: CAD Medications and Allergies Allergies Allergy/AdvReac Type Severity Reaction Status Date / Time clarithromycin [From Biaxin] Allergy Unknown Verified 04/28/18 16:08 Home Medications Medication Instructions Recorded Confirmed Last Taken Type Ibuprofen [Motrin 800 MG tab] 800 mg PO Q8HR PRN #30 tablet 04/28/18 10/17/19 10/13/19 08:00 Rx Albuterol Mdi (or & Nicu Only) 2 puff IH QID PRN #8.5 gram 09/12/19 10/17/19 Unknown Rx [ProAir HFA Inhaler] Benzonatate [Tessalon Perles] 100 mg PO Q8HR #30 capsule 09/12/19 10/17/19 10/13/19 08:00 Rx Acetaminophen [Tylenol] 2 tab PO PRN PRN 10/17/19 10/17/19 10/13/19 08:00 Histo ry Aspirin EC [Ecotrin] 325 mg PO QDAY #30 tablet. 10/17/19 Unknown Rx AtorvaSTATin [Lipitor] 80 mg PO QHS #30 tablet 10/17/19 Unknown Rx Clopidogrel [Plavix] 75 mg PO QDAY #30 tablet 10/17/19 Unknown Rx Nicotine [Habitrol] 14 mg TD QDAY #14 patch 10/17/19 Unknown Rx Valsartan [Diovan] 160 mg PO Q12H #60 tablet 10/17/19 Unknown Rx carvediloL [Coreg] 12.5 mg PO BID #60 tablet 10/17/19 Unknown Rx traMADoL [Ultram 50 MG tab] 50 mg PO Q6H PRN #20 tablet 10/17/19 Unknown Rx Active Meds: Active Medications Heparin Sodium/Sodium Chloride (Heparin/ 0.45% Nacl-25,000 Unit/500 Ml) 25,000 unit in 500 mls @ 20 mls/hr IV TITRATE JESSICA; Protocol Last Admin: 04/29/20 17:20 Dose: 1,000 units/hr, 20 mls/hr Documented by: Sodium Chloride (Nacl 0.9% 500 Ml) 500 mls @ 50 mls/hr IV DIRECT JESSICA Stop: 04/30/20 04:59 Review of Systems Cardiovascular: chest pain, shortness of breath, no orthopnea, no palpitations, no rapid/irregular heart beat, no edema, no syncope, no lightheadedness Physical Examination Vital Signs Temp Pulse Resp BP Pulse Ox 98.4 F 59 L 18 184/110 99 04/29/20 12:31 04/29/20 12:31 04/29/20 12:31 04/29/20 12:31 04/29/20 12:31 General appearance: no acute distress HEENT: Positive: PERRL Neck: Positive: neck supple Cardiac: Positive: Reg Rate and Rhythm Lungs: Positive: clear to auscultation Neuro: Positive: Grossly Intact Abdomen: Positive: Soft Male genitourinary: Positive: deferred Skin: Positive: Clear Extremities: Absent: edema Results 04/29/20 13:39 04/29/20 13:39 Coagulation 04/29/20 Range/Units 15:08 PT 13.6 (12.2-14.9) Sec. INR 1.03 (0.87-1.13) APTT 27.9 (24.2-36.6) Sec. Lipids 04/29/20 Range/Units 13:39 Triglycerides 97 (2-149) mg/dL Cholesterol 128 (50-199) mg/dL HDL Cholesterol 60 H (40-59) mg/dL Cholesterol/HDL Ratio 2.13 % CBC 04/29/20 Range/Units 13:39 WBC 6.9 (4.5-11.0) K/mm3 RBC 4.30 (3.65-5.03) M/mm3 Hgb 10.7 L (11.8-15.2) gm/dl Hct 33.6 L (35.5-45.6) % Plt Count 315 (140-440) K/mm3 Lymph # (Auto) 3.0 (1.2-5.4) K/mm3 [place] # (Auto) 0.8 (0.0-0.8) K/mm3 Eos # (Auto) 0.4 (0.0-0.4) K/mm3 Baso # (Auto) 0.0 (0.0-0.1) K/mm3 Comprehensive Metabolic Panel 04/29/20 Range/Units 13:39 Sodium 140 (137-145) mmol/L Potassium 4.8 (3.6-5.0) mmol/L Chloride 101.2 (98-107) mmol/L Carbon Dioxide 25 (22-30) mmol/L BUN 9 (9-20) mg/dL Creatinine 0.9 (0.8-1.3) mg/dL Glucose 96 (75-100) mg/dL Calcium 9.4 (8.4-10.2) mg/dL EKG interpretations - Telemetry EKG Rhythm: Sinus Rhythm Assessment and Plan - Patient Problems (1) Chest pain Current Visit: Yes Status: Acute Plan to address problem: Patient with a history of coronary artery disease and status post coronary stenting 6 months ago, fully compliant with dual antiplatelet therapy. He presents with somewhat atypical chest pain, but the cardiac isoenzymes troponin levels elevated in a nonspecific manner. We will complete a rule out NE protocol, and if indicated we will evaluate with invasive coronary angiography. Prior to anticipated procedure, I have directed the nursing staff to call the outpatient clinic that he attended today, to obtain the result of his COVID-19 test. I will defer to the internal medicine team to determine if the patient will remain a subject of interest until the Covid test results are known.
[2020-04-29] MEDS ORDERED: SODIUM CHLORIDE 0.9% 500 ML 500 ML IV SCH (19:00)
[2020-04-29] MEDS: CLOPIDOGREL 75 MG TAB PO SCH (22:46)
[2020-04-29] MEDS ORDERED: ALBUTEROL 8.5 GM MDI INHALATION IH PRN (23:04)
[2020-04-29] MEDS ORDERED: NON-FORMULARY EACH (Acetaminophen [Tylenol] 2 TAB) PO PRN (23:04)
[2020-04-29] MEDS ORDERED: IBUPROFEN 800 MG TAB PO PRN (23:04)
[2020-04-29] MEDS ORDERED: traMADol 50 MG TAB PO PRN (23:04)
--- NOTE | 2020-04-29 23:04 | History and Physical Report ---
History of Present Illness Date of examination: 04/29/20 Date of admission: 04/29/20 17:05 Chief complaint: Chest pain since 8 AM History of present illness: 64-year-old -Indian male with history of hypertension coronary artery disease and hyperlipidemia and COPD comes in from urgent care for midsternal chest pain that has been going on since last night. Patient has been watching television" chest pain. He went to urgent care for taking a Covid test. Because of the chest pain urgent care sent him to the emergency room for further evaluation and treatment. Patient was given full dose aspirin. Patient denies any other coronary artery disease with cardiac stents and hypertension. Also reviewed tobacco use. He follows with [facility]. Heart Score - HEART Score History: Moderately suspicious EKG: Normal Age: 45-65 Risk factors: > 3 risk factors or hx of atherosclerotic disease Troponin: > 3x normal limit HEART Score: 6 - Critical Actions Critical Actions: 4-6 pts:12-16.6% risk of adverse cardiac event. Should be admitted - Past Medical History Previous Medical History?: Yes Hx Hypertension: Yes Hx Heart Attack/AMI: Yes Hx Liver Disease: Yes (Hep C) Additional medical history: recurrent left knee pain - Surgical History Past Surgical History?: Yes Hx Coronary Stent: Yes - Social History Smoking Status: Never Smoker Substance Use Type: None Family history Htn - Medications Home Medications: Home Medications Medication Instructions Recorded Confirmed Last Taken Type Ibuprofen [Motrin 800 MG tab] 800 mg PO Q8HR PRN #30 tablet 04/28/18 10/17/19 10/13/19 08:00 Rx Albuterol Mdi (or & Nicu Only) 2 puff IH QID PRN #8.5 gram 09/12/19 10/17/19 Unknown Rx [ProAir HFA Inhaler] Benzonatate [Tessalon Perles] 100 mg PO Q8HR #30 capsule 09/12/19 10/17/19 10/13/19 08:00 Rx Acetaminophen [Tylenol] 2 tab PO PRN PRN 10/17/19 10/17/19 10/13/19 08:00 History Aspirin EC [Ecotrin] 325 mg PO QDAY #30 tablet. 10/17/19 Unknown Rx AtorvaSTATin [Lipitor] 80 mg PO QHS #30 tablet 10/17/19 Unknown Rx Clopidogrel [Plavix] 75 mg PO QDAY #30 tablet 10/17/19 Unknown Rx Nicotine [Habitrol] 14 mg TD QDAY #14 patch 10/17/19 Unknown Rx Valsartan [Diovan] 160 mg PO Q12H #60 tablet 10/17/19 Unknown Rx carvediloL [Coreg] 12.5 mg PO BID #60 tablet 10/17/19 Unknown Rx traMADoL [Ultram 50 MG tab] 50 mg PO Q6H PRN #20 tablet 10/17/19 Unknown Rx Review of Systems ROS: Stated complaint: CHEST PAINS Other details as noted in HPI Comment: All other systems reviewed and negative Constitutional: denies: chills, fever Eyes: denies: eye pain, vision change ENT: denies: ear pain, throat pain Respiratory: denies: cough, wheezing Cardiovascular: chest pain. denies: palpitations Gastrointestinal: denies: abdominal pain, vomiting Genitourinary: denies: dysuria, discharge Musculoskeletal: denies: back pain, arthralgia Skin: denies: rash, lesions Neurological: denies: headache, weakness Past History Past Medical History: CAD Medications and Allergies Allergies Allergy/AdvReac Type Severity Reaction Status Date / Time clarithromycin [From Biaxin] Allergy Unknown Verified 04/28/18 16:08 Home Medications Medication Instructions Recorded Confirmed Last Taken Type Ibuprofen [Motrin 800 MG tab] 800 mg PO Q8HR PRN #30 tablet 04/28/18 10/17/19 10/13/19 08:00 Rx Albuterol Mdi (or & Nicu Only) 2 puff IH QID PRN #8.5 gram 09/12/19 10/17/19 Unknown Rx [ProAir HFA Inhaler] Benzonatate [Tessalon Perles] 100 mg PO Q8HR #30 capsule 09/12/19 10/17/19 10/13/19 08:00 Rx Acetaminophen [Tylenol] 2 tab PO PRN PRN 10/17/19 10/17/19 10/13/19 08:00 History Aspirin EC [Ecotrin] 325 mg PO QDAY #30 tablet. 10/17/19 Unknown Rx AtorvaSTATin [Lipitor] 80 mg PO QHS #30 tablet 10/17/19 Unknown Rx Clopidogrel [Plavix] 75 mg PO QDAY #30 tablet 10/17/19 Unknown Rx Nicotine [Habitrol] 14 mg TD QDAY #14 patch 10/17/19 Unknown Rx Valsartan [Diovan] 160 mg PO Q12H #60 tablet 10/17/19 Unknown Rx carvediloL [Coreg] 12.5 mg PO BID #60 tablet 10/17/19 Unknown Rx traMADoL [Ultram 50 MG tab] 50 mg PO Q6H PRN #20 tablet 10/17/19 Unknown Rx Active Meds: Active Medications Aspirin (Halfprin Ec) 81 mg PO QDAY JESSICA Clopidogrel Bisulfate (Plavix) 75 mg PO QDAY JESSICA Last Admin: 04/29/20 22:46 Dose: 75 mg Documented by: Heparin Sodium/Sodium Chloride (Heparin/ 0.45% Nacl-25,000 Unit/500 Ml) 25,000 unit in 500 mls @ 20 mls/hr IV TITRATE JESSICA; Protocol Last Admin: 04/29/20 17:20 Dose: 1,000 units/hr, 20 mls/hr Documented by: Sodium Chloride (Nacl 0.9% 500 Ml) 500 mls @ 50 mls/hr IV DIRECT JESSICA Stop: 04/30/20 04:59 Last Admin: 04/29/20 22:47 Dose: 50 mls/hr Documented by: Exam - Constitutional Vitals: Temp Pulse Resp BP Pulse Ox 98 F 68 18 151/68 99 04/29/20 20:31 04/29/20 20:31 04/29/20 20:31 04/29/20 20:31 04/29/20 20:31 General appearance: Present: no acute distress, well-nourished - EENT Eyes: Present: PERRL ENT: hearing intact, clear oral mucosa - Neck Neck: Present: supple, normal ROM - Respiratory Respiratory effort: normal Respiratory: bilateral: CTA - Cardiovascular Heart rate: 78 Rhythm: regular Heart Sounds: Present: S1 & S2. Absent: rub, click - Extremities Extremities: pulses symmetrical, No edema Peripheral Pulses: within normal limits - Abdominal General gastrointestinal: Present: soft, non-tender, non-distended, normal bowel sounds Male genitourinary: Present: normal - Integumentary Integumentary: Present: clear, warm, dry - Musculoskeletal Musculoskeletal: gait normal, strength equal bilaterally - Psychiatric Psychiatric: appropriate mood/affect, intact judgment & insight - Neurologic Neurologic: CNII-XII intact, moves all extremities - Allied Health Allied health notes reviewed: nursing, case management HEART Score - HEART Score EKG: Normal Age: 45-65 Risk factors: > 3 risk factors or hx of atherosclerotic disease Troponin: Troponin T 0.225 ng/mL (0.00-0.029) H* 04/29/20 18:57 Troponin: > 3x normal limit - Critical Actions Critical Actions: 4-6 pts:12-16.6% risk of adverse cardiac event. Should be admitted Results - Labs CBC & Chem 7: 04/30/20 05:20 04/30/20 05:20 Labs: Laboratory Last Values WBC 6.9 K/mm3 (4.5-11.0) 04/29/20 13:39 RBC 4.30 M/mm3 (3.65-5.03) 04/29/20 13:39 Hgb 10.7 gm/dl (11.8-15.2) L 04/29/20 13:39 Hct 33.6 % (35.5-45.6) L 04/29/20 13:39 MCV 78 fl (84-94) L 04/29/20 13:39 MCH 25 pg (28-32) L 04/29/20 13:39 MCHC 32 % (32-34) 04/29/20 13:39 RDW 17.1 % (13.2-15.2) H 04/29/20 13:39 Plt Count 315 K/mm3 (140-440) 04/29/20 13:39 Lymph % (Auto) 42.5 % (13.4-35.0) H 04/29/20 13:39 [place] % (Auto) 10.9 % (0.0-7.3) H 04/29/20 13:39 Eos % (Auto) 5.2 % (0.0-4.3) H 04/29/20 13:39 Baso % (Auto) 0.5 % (0.0-1.8) 04/29/20 13:39 Lymph # (Auto) 3.0 K/mm3 (1.2-5.4) 04/29/20 13:39 [place] # (Auto) 0.8 K/mm3 (0.0-0.8) 04/29/20 13:39 Eos # (Auto) 0.4 K/mm3 (0.0-0.4) 04/29/20 13:39 Baso # (Auto) 0.0 K/mm3 (0.0-0.1) 04/29/20 13:39 Seg Neutrophils % 40.9 % (40.0-70.0) 04/29/20 13:39 Seg Neutrophils # 2.8 K/mm3 (1.8-7.7) 04/29/20 13:39 PT 13.6 Sec. (12.2-14.9) 04/29/20 15:08 INR 1.03 (0.87-1.13) 04/29/20 15:08 APTT 27.9 Sec. (24.2-36.6) 04/29/20 15:08 Sodium 140 mmol/L (137-145) 04/29/20 13:39 Potassium 4.8 mmol/L (3.6-5.0) 04/29/20 13:39 Chloride 101.2 mmol/L (98-107) 04/29/20 13:39 Carbon Dioxide 25 mmol/L (22-30) 04/29/20 13:39 Anion Gap 19 mmol/L 04/29/20 13:39 BUN 9 mg/dL (9-20) 04/29/20 13:39 Creatinine 0.9 mg/dL (0.8-1.3) 04/29/20 13:39 Estimated GFR > 60 ml/min 04/29/20 13:39 BUN/Creatinine Ratio 10 % 04/29/20 13:39 Glucose 96 mg/dL (75-100) 04/29/20 13:39 Calcium 9.4 mg/dL (8.4-10.2) 04/29/20 13:39 Troponin T 0.225 ng/mL (0.00-0.029) H* 04/29/20 18:57 Triglycerides 97 mg/dL (2-149) 04/29/20 13:39 Cholesterol 128 mg/dL (50-199) 04/29/20 13:39 LDL Cholesterol Direct 56 mg/dL (50-130) 04/29/20 13:39 HDL Cholesterol 60 mg/dL (40-59) H 04/29/20 13:39 Cholesterol/HDL Ratio 2.13 % 04/29/20 13:39 Short CBC 04/29/20 04/30/20 Range/Units 13:39 05:20 WBC 6.9 5.6 (4.5-11.0) K/mm3 Hgb 10.7 L 9.5 L (11.8-15.2) gm/dl Hct 33.6 L 28.8 L (35.5-45.6) % Plt Count 315 258 (140-440) K/mm3 BMP 04/29/20 04/30/20 13:39 05:20 Sodium 140 140 Potassium 4.8 4.1 Chloride 101.2 103.3 Carbon Dioxide 25 24 BUN 9 10 Creatinine 0.9 0.9 Glucose 96 99 Calcium 9.4 8.5 Cardiac Enzymes 04/29/20 04/29/20 04/29/20 Range/Units 13:39 15:08 18:57 Troponin T 0.284 H* 0.277 H* 0.225 H* (0.00-0.029) ng/mL Liver Function 04/30/20 Range/Units 05:20 Total Bilirubin 0.40 (0.1-1.2) mg/dL AST 28 (5-40) units/L ALT 20 (7-56) units/L Alkaline Phosphatase 61 (35-129) units/L Albumin 3.6 L (3.9-5) g/dL - Imaging and Cardiology EKG: report reviewed (Normal sinus rhythm no acute ST-T wave changes) Chest x-ray: report reviewed (No acute findings) [place]/IV: IV Catheter Type [Right Peripheral IV Forearm] Assessment and Plan Advance Directives: Yes (Full code) VTE prophylaxis?: Chemical Plan of care discussed with patient/family: Yes - Patient Problems (1) NSTEMI (non-ST elevated myocardial infarction) Current Visit: Yes Status: Acute Plan to address problem: Patient initiated on IV heparin Cardiology consult requested Serial troponins Patient has a history of coronary artery disease with stents (2) CAD (coronary artery disease) Current Visit: Yes Status: Chronic Qualifiers: Coronary Disease-Associated Artery/Lesion type: unspecified vessel or lesion type [place] vs. transplanted heart: [place] heart Associated angina: with unspecified angina Qualified Code(s): I25.119 - Atherosclerotic heart disease of [place] coronary artery with unspecified angina pectoris Plan to address problem: Patient on statins and Plavix (3) HTN (hypertension) Current Visit: Yes Status: Chronic Qualifiers: Hypertension type: essential hypertension Qualified Code(s): I10 - Essential (primary) hypertension Plan to address problem: Continue antihypertensives with adjust medications as necessary (4) Hyperlipidemia LDL goal <160 Current Visit: No Status: Chronic Plan to address problem: Continue statins (5) COPD (chronic obstructive pulmonary disease) Current Visit: No Status: Chronic Qualifiers: Emphysema type: unspecified Plan to address problem: Continue duo nebs as needed (6) Tobacco use Current Visit: No Status: Chronic Plan to address problem: Nicotine patch 21 mg ordered Counseled about stopping smoking (7) DVT prophylaxis Current Visit: Yes Status: Acute Plan to address problem: Patient on heparin drip and GI prophylaxis
[2020-04-29] MEDS ORDERED: ACETAMINOPHEN 325 MG TAB PO PRN (23:06)
[2020-04-29] MEDS ORDERED: ONDANSETRON 4 MG/2 ML INJ IV PRN (23:06)
[2020-04-29] MEDS ORDERED: METOCLOPRAMIDE 10 MG/2 ML INJ IV PRN (23:06)
[2020-04-29] MEDS ORDERED: ALBUTEROL 2.5 MG/3 ML NEBU IH PRN (23:19)
[2020-04-29] MEDS: oxyCODONE /ACETAMINOPHEN 5-325MG TAB PO PRN (23:29)
[2020-04-29] MEDS: carvediloL 12.5 MG TAB PO SCH (23:30)
[2020-04-29] MEDS: VALSARTAN 160MG TAB PO SCH (23:31)
[2020-04-30 06:09] LABS: Hematocrit 28.8 % (35.5-45.6); Hemoglobin 9.5 gm/dl (11.8-15.2); Mean Corpuscular HGB Conc 33 % (32-34); Mean Corpuscular Volume 78 fl (84-94); Platelet Count 258 K/mm3 (140-440); Red Blood Count 3.69 M/mm3 (3.65-5.03)
[2020-04-30 06:24] LABS: Alanine Aminotransferase 20 units/L (7-56); Albumin 3.6 g/dL (3.9-5); BUN/Creatinine Ratio 11; Blood Urea Nitrogen 10 mg/dL (9-20); Calcium 8.5 mg/dL (8.4-10.2); Hemolysis Index 1
[2020-04-30] MEDS: oxyCODONE /ACETAMINOPHEN 5-325MG TAB PO PRN ×2 (06:53→21:49)
[2020-04-30] MEDS: BENZONATATE 100 MG CAP PO SCH ×3 (06:53→21:43)
[2020-04-30] MEDS: SODIUM CHLORIDE 0.9% 1000 ML 1,000 ML IV SCH ×2 (06:56→21:45)
[2020-04-30 07:05] LABS: Basophils % (Manual) 0 % (0.0-1.8); Total Cells Counted 100
[2020-04-30 07:06] LABS: Anisocytosis 1+; Hypochromasia Few; Platelet Estimate Consistent w Auto
--- NOTE | 2020-04-30 08:17 | Progress Note ---
Assessment and Plan - Patient Problems (1) NSTEMI (non-ST elevated myocardial infarction) Current Visit: Yes Status: Acute Plan to address problem: Patient presents with non-Q wave NC. Currently treated conservatively. Beta- kate antilipid and antiplatelet therapy. Patient return tests Covid negative. Cardiology able to proceed with additional studies. (2) CAD (coronary artery disease) Current Visit: Yes Status: Chronic Qualifiers: Coronary Disease-Associated Artery/Lesion type: unspecified vessel or lesion type [place] vs. transplanted heart: [place] heart Associated angina: with unspecified angina Qualified Code(s): I25.119 - Atherosclerotic heart disease of [place] coronary artery with unspecified angina pectoris Plan to address problem: Patient has been having persistent chest pain. Could be secondary to stress. Patient got into an argument with family members prior to discomfort. Remains chest pain-free at this particular time. (3) HTN (hypertension) Current Visit: Yes Status: Chronic Qualifiers: Hypertension type: essential hypertension Qualified Code(s): I10 - Essential (primary) hypertension Plan to address problem: Patient with suboptimal control of blood pressure increase Coreg to 25 mg twice daily. (4) Hyperlipidemia associated with type 2 diabetes mellitus Current Visit: No Status: Acute Plan to address problem: We will recheck LDL goal less than 70. (5) COPD (chronic obstructive pulmonary disease) Current Visit: No Status: Chronic Qualifiers: Emphysema type: unspecified Plan to address problem: Minimal wheezing no shortness of breath at this particular time. Continue as needed nebulizer treatments. (6) Hyperlipidemia LDL goal <160 Current Visit: No Status: Chronic Plan to address problem: Statin goal LDL less than 70. (7) Tobacco use Current Visit: No Status: Chronic Plan to address problem: Patient explained the importance of smoking cessation and while his stents may be clogged again secondary to continued tobacco use. Subjective Date of service: 04/30/20 Principal diagnosis: chest pain Interval history: 64-year-old -[place] male with history of hypertension coronary artery disease and hyperlipidemia and COPD comes in from urgent care for midsternal chest pain that has been going on since last night. Patient has been watching television" chest pain. He went to urgent care for taking a Covid test. Because of the chest pain urgent care sent him to the emergency room for further evaluation and treatment. Patient was given full dose aspirin. Patient denies any other coronary artery disease with cardiac stents and hypertension. Also reviewed tobacco use. He follows with [facility]. Patient is currently chest pain-free. Covid test has returned negative. Objective - Constitutional Vitals: Vital Signs - 12hr 04/29/20 04/29/20 04/29/20 20:31 22:00 23:30 Temperature 98 F Pulse Rate 68 78 Respiratory 18 16 Rate Blood Pressure Blood Pressure 151/68 [Left] O2 Sat by Pulse 99 97 Oximetry 04/29/20 04/30/20 04/30/20 23:31 00:04 00:10 Temperature 98.0 F Pulse Rate 78 80 77 Respiratory 18 Rate Blood Pressure 159/78 163/93 Blood Pressure [Left] O2 Sat by Pulse 97 Oximetry 04/30/20 04/30/20 04:24 07:40 Temperature 98.0 F 97.9 F Pulse Rate 73 57 L Respiratory 18 18 Rate Blood Pressure 144/86 152/82 Blood Pressure [Left] O2 Sat by Pulse 98 96 Oximetry General appearance: Present: no acute distress, well-nourished - EENT Eyes: PERRL, EOM intact ENT: hearing intact, clear oral mucosa Ears: bilateral: normal - Neck Neck: supple, normal ROM - Respiratory Respiratory effort: normal Respiratory: bilateral: CTA - Breasts Breasts: normal - Cardiovascular Rhythm: regular Heart Sounds: Present: S1 & S2. Absent: gallop, rub Extremities: pulses intact, No edema, normal color, Full ROM - Gastrointestinal General gastrointestinal: Present: soft, non-tender, non-distended, normal bowel sounds - Genitourinary Male genitourinary: normal - Integumentary Integumentary: clear, warm, dry - Musculoskeletal Musculoskeletal: 1, strength equal bilaterally - Neurologic Neurologic: moves all extremities - Psychiatric Psychiatric: memory intact, appropriate mood/affect, intact judgment & insight - Labs CBC & Chem 7: 04/30/20 05:20 04/30/20 05:20 Labs: Abnormal lab results 04/29/20 04/29/20 04/29/20 Range/Units 13:39 13:39 15:08 Hgb 10.7 L (11.8-15.2) gm/dl Hct 33.6 L (35.5-45.6) % MCV 78 L (84-94) fl MCH 25 L (28-32) pg RDW 17.1 H (13.2-15.2) % Lymph % (Auto) 42.5 H (13.4-35.0) % [place] % (Auto) 10.9 H (0.0-7.3) % Eos % (Auto) 5.2 H (0.0-4.3) % Seg Neuts % (Manual) (40.0-70.0) % Lymphocytes % (Manual) (13.4-35.0) % Monocytes % (Manual) (0.0-7.3) % Nucleated RBC % (0.0-0.9) % Hemoglobin A1c (4-6) % Troponin T 0.284 H* 0.277 H* (0.00-0.029) ng/mL Albumin (3.9-5) g/dL HDL Cholesterol 60 H (40-59) mg/dL 04/29/20 04/30/20 04/30/20 Range/Units 18:57 00:33 05:20 Hgb 9.5 L (11.8-15.2) gm/dl Hct 28.8 L (35.5-45.6) % MCV 78 L (84-94) fl MCH 26 L (28-32) pg RDW 17.0 H (13.2-15.2) % Lymph % (Auto) (13.4-35.0) % [place] % (Auto) (0.0-7.3) % Eos % (Auto) (0.0-4.3) % Seg Neuts % (Manual) 35.0 L (40.0-70.0) % Lymphocytes % (Manual) 51.0 H (13.4-35.0) % Monocytes % (Manual) 8.0 H (0.0-7.3) % Nucleated RBC % 1.0 H (0.0-0.9) % Hemoglobin A1c 6.3 H (4-6) % Troponin T 0.225 H* (0.00-0.029) ng/mL Albumin (3.9-5) g/dL HDL Cholesterol (40-59) mg/dL 04/30/20 Range/Units 05:20 Hgb (11.8-15.2) gm/dl Hct (35.5-45.6) % MCV (84-94) fl MCH (28-32) pg RDW (13.2-15.2) % Lymph % (Auto) (13.4-35.0) % [place] % (Auto) (0.0-7.3) % Eos % (Auto) (0.0-4.3) % Seg Neuts % (Manual) (40.0-70.0) % Lymphocytes % (Manual) (13.4-35.0) % Monocytes % (Manual) (0.0-7.3) % Nucleated RBC % (0.0-0.9) % Hemoglobin A1c (4-6) % Troponin T (0.00-0.029) ng/mL Albumin 3.6 L (3.9-5) g/dL HDL Cholesterol (40-59) mg/dL HEART Score - HEART Score EKG: Normal Age: 45-65 Risk factors: > 3 risk factors or hx of atherosclerotic disease Troponin: Troponin T 0.225 ng/mL (0.00-0.029) H* 04/29/20 18:57 Troponin: > 3x normal limit - Critical Actions Critical Actions: 4-6 pts:12-16.6% risk of adverse cardiac event. Should be admitted
[2020-04-30] MEDS ORDERED: ASPIRIN EC 325 MG TAB PO SCH (10:00)
[2020-04-30] MEDS ORDERED: CLOPIDOGREL 75 MG TAB PO SCH (10:00)
[2020-04-30] MEDS: FAMOTIDINE 20 MG/2 ML INJ IV SCH ×2 (10:05→22:24)
[2020-04-30] MEDS: CLOPIDOGREL 75 MG TAB PO SCH (10:05)
[2020-04-30] MEDS: ASPIRIN EC 81 MG TAB PO SCH (10:05)
[2020-04-30] MEDS: NICOTINE 14 MG/24 HR PATCH TD SCH (10:05)
[2020-04-30] MEDS: carvediloL 12.5 MG TAB PO SCH (10:06)
[2020-04-30] MEDS: VALSARTAN 160MG TAB PO SCH ×2 (10:17→22:52)
[2020-04-30] MEDS: HYDROmorphone 1 MG/1 ML INJ IV PRN (10:21)
--- NOTE | 2020-04-30 10:59 | Progress Note ---
Assessment and Plan Chest pain Elevated troponin Hx of coronary artery disease s/p PCI of the mid Cx 10/2019. Patient reports compliance with dual antiplatelet therapy. LVEF 50-55% by echo 10/2019. Hypertension Plan: Continue medical therapy for coronary artery disease. Invasive coronary angigraphy is currently on hold until COVID test results are known. Subjective Date of service: 04/30/20 Interval history: Patient is resting in bed comfortably. COVID 19 results are pending. Objective Vital Signs Temp Pulse Resp BP BP Pulse Ox 04/30/20 10:17 57 L 152/82 04/30/20 10:06 57 L 152/82 04/30/20 07:40 97.9 F 57 L 18 152/82 96 04/30/20 04:24 98.0 F 73 18 144/86 98 04/30/20 00:10 77 04/30/20 00:04 98.0 F 80 18 163/93 97 04/29/20 23:31 78 159/78 04/29/20 23:30 78 04/29/20 22:00 16 97 04/29/20 20:31 98 F 68 18 151/68 99 04/29/20 19:35 157/94 96 04/29/20 18:38 82 18 154/88 95 04/29/20 18:11 157/94 04/29/20 18:08 134 H 157/94 04/29/20 18:01 73 15 157/94 100 04/29/20 17:45 65 15 157/94 100 04/29/20 17:31 67 14 157/94 100 04/29/20 17:15 69 19 157/94 100 04/29/20 17:01 70 21 157/94 99 04/29/20 16:47 72 152/90 04/29/20 16:45 73 17 157/94 100 04/29/20 16:31 68 22 157/94 99 04/29/20 16:15 73 20 157/94 100 04/29/20 16:00 72 16 152/90 98 04/29/20 15:45 75 18 157/94 100 04/29/20 15:31 71 17 157/94 98 04/29/20 15:15 77 19 157/94 99 04/29/20 15:05 19 04/29/20 14:06 82 04/29/20 13:06 18 97 04/29/20 12:31 98.4 F 59 L 18 184/110 99 - Physical Examination Narrative exam: Deferred due to isolation protocol. General: No Apparent Distress Cardiac: Positive: Reg Rate and Rhythm - Labs and Meds Cardiac Enzymes 04/30/20 Range/Units 05:20 AST 28 (5-40) units/L Coagulation 04/29/20 Range/Units 15:08 PT 13.6 (12.2-14.9) Sec. INR 1.03 (0.87-1.13) APTT 27.9 (24.2-36.6) Sec. Lipids 04/29/20 Range/Units 13:39 Triglycerides 97 (2-149) mg/dL Cholesterol 128 (50-199) mg/dL HDL Cholesterol 60 H (40-59) mg/dL Cholesterol/HDL Ratio 2.13 % CBC 04/29/20 04/30/20 Range/Units 13:39 05:20 WBC 6.9 5.6 (4.5-11.0) K/mm3 RBC 4.30 3.69 (3.65-5.03) M/mm3 Hgb 10.7 L 9.5 L (11.8-15.2) gm/dl Hct 33.6 L 28.8 L (35.5-45.6) % Plt Count 315 258 (140-440) K/mm3 Lymph # (Auto) 3.0 (1.2-5.4) K/mm3 [place] # (Auto) 0.8 (0.0-0.8) K/mm3 Eos # (Auto) 0.4 (0.0-0.4) K/mm3 Baso # (Auto) 0.0 (0.0-0.1) K/mm3 Comprehensive Metabolic Panel 04/29/20 04/30/20 Range/Units 13:39 05:20 Sodium 140 140 (137-145) mmol/L Potassium 4.8 4.1 (3.6-5.0) mmol/L Chloride 101.2 103.3 (98-107) mmol/L Carbon Dioxide 25 24 (22-30) mmol/L BUN 9 10 (9-20) mg/dL Creatinine 0.9 0.9 (0.8-1.3) mg/dL Glucose 96 99 (75-100) mg/dL Calcium 9.4 8.5 (8.4-10.2) mg/dL AST 28 (5-40) units/L ALT 20 (7-56) units/L Alkaline Phosphatase 61 (35-129) units/L Total Protein 6.9 (6.3-8.2) g/dL Albumin 3.6 L (3.9-5) g/dL
[2020-04-30 12:40] LABS: % Iron Saturation 7.75 %
[2020-04-30] MEDS: carvediloL 25 MG TAB PO SCH (21:44)
[2020-05-01] MEDS: BENZONATATE 100 MG CAP PO SCH ×3 (06:34→21:27)
[2020-05-01] MEDS: oxyCODONE /ACETAMINOPHEN 5-325MG TAB PO PRN ×2 (08:39→18:24)
[2020-05-01] MEDS: NICOTINE 14 MG/24 HR PATCH TD SCH (09:25)
[2020-05-01] MEDS: VALSARTAN 160MG TAB PO SCH ×2 (09:25→21:26)
[2020-05-01] MEDS: CLOPIDOGREL 75 MG TAB PO SCH (09:25)
[2020-05-01] MEDS: FAMOTIDINE 20 MG/2 ML INJ IV SCH (09:25)
[2020-05-01] MEDS: carvediloL 25 MG TAB PO SCH ×2 (09:25→21:27)
[2020-05-01] MEDS: ASPIRIN EC 81 MG TAB PO SCH (09:25)
[2020-05-01 10:21] LABS: Hemoglobin 9.7 gm/dl (11.8-15.2)
--- NOTE | 2020-05-01 12:42 | Progress Note ---
Assessment and Plan - Patient Problems (1) Chest pain Current Visit: Yes Status: Acute Plan to address problem: Patient with a history of coronary artery disease and status post coronary stenting 6 months ago, fully compliant with dual antiplatelet therapy. He pr esents with somewhat atypical chest pain, but the cardiac isoenzymes troponin levels elevated in a nonspecific manner. We will proceed with cardiac catheterization and diagnostic coronary angiography on Sunday. Subjective Date of service: 05/01/20 Principal diagnosis: chest pain Interval history: Patient is comfortable, no cardiac complaints, no further chest pain. His COVID-19 test was negative, and he is waiting for cardiac catheterization scheduled for Sunday. Objective Vital Signs Temp Pulse Resp BP Pulse Ox 05/01/20 09:25 61 158/88 05/01/20 08:21 98.5 F 61 18 158/88 90 05/01/20 04:32 98.8 F 65 18 162/88 97 05/01/20 00:36 97.6 F 67 18 149/71 98 04/30/20 22:52 63 165/84 04/30/20 22:00 62 04/30/20 21:44 63 165/84 04/30/20 20:13 98.5 F 63 18 165/84 98 04/30/20 16:23 98.6 F 57 L 20 161/82 100 - Physical Examination General: No Apparent Distress HEENT: Positive: PERRL Neck: Positive: neck supple Cardiac: Positive: Reg Rate and Rhythm Lungs: Positive: clear to auscultation Neuro: Positive: Grossly Intact Abdomen: Positive: Soft Skin: Positive: Clear Extremities: Absent: edema - Labs and Meds CBC 05/01/20 Range/Units 08:51 Hgb 9.7 L (11.8-15.2) gm/dl Hct 30.0 L (35.5-45.6) % Plt Count 292 (140-440) K/mm3 - Imaging and Cardiology EKG: report reviewed (Normal sinus rhythm no acute ST-T wave changes)
[2020-05-01] MEDS: SODIUM CHLORIDE 0.9% 1000 ML 1,000 ML IV SCH (13:11)
[2020-05-01] MEDS: HEPARIN/ 0.45% NACL DRIP 25,000 UNIT/500 ML BAG IV SCH (13:11)
--- NOTE | 2020-05-01 16:41 | Progress Note ---
Assessment and Plan - Patient Problems (1) NSTEMI (non-ST elevated myocardial infarction) Current Visit: Yes Status: Acute Plan to address problem: Patient presents with non-Q wave [place]. Currently treated conservatively. Beta- kate antilipid and antiplatelet therapy. Patient return tests Covid negative. Cardiology able to proceed with additional studies. (2) CAD (coronary artery disease) Current Visit: Yes Status: Chronic Qualifiers: Coronary Disease-Associated Artery/Lesion type: unspecified vessel or lesion type [place] vs. transplanted heart: [place] heart Associated angina: with unspecified angina Qualified Code(s): I25.119 - Atherosclerotic heart disease of [place] coronary artery with unspecified angina pectoris Plan to address problem: Patient has been having persistent chest pain. Could be secondary to stress. Patient got into an argument with family members prior to discomfort. Remains chest pain-free at this particular time. (3) HTN (hypertension) Current Visit: Yes Status: Chronic Qualifiers: Hypertension type: essential hypertension Qualified Code(s): I10 - Essential (primary) hypertension Plan to address problem: Patient with suboptimal control of blood pressure increase Coreg to 25 mg twice daily. (4) Hyperlipidemia associated with type 2 diabetes mellitus Current Visit: No Status: Acute Plan to address problem: We will recheck LDL goal less than 70. (5) COPD (chronic obstructive pulmonary disease) Current Visit: No Status: Chronic Qualifiers: Emphysema type: unspecified Plan to address problem: Minimal wheezing no shortness of breath at this particular time. Continue as needed nebulizer treatments. (6) Hyperlipidemia LDL goal <160 Current Visit: No Status: Chronic Plan to address problem: Statin goal LDL less than 70. (7) Tobacco use Current Visit: No Status: Chronic Plan to address problem: Patient explained the importance of smoking cessation and while his stents may be clogged again secondary to continued tobacco use. Subjective Date of service: 05/01/20 Principal diagnosis: chest pain Interval history: Patient currently chest pain-free atypical chest pain Covid negative awaiting invasive angiogram Objective - Constitutional Vitals: Vital Signs - 12hr 05/01/20 05/01/20 05/01/20 08:21 09:25 11:00 Temperature 98.5 F Pulse Rate 61 61 61 Respiratory 18 Rate Blood Pressure 158/88 158/88 Blood Pressure [Left] O2 Sat by Pulse 90 Oximetry 05/01/20 05/01/20 13:41 16:06 Temperature 98 F Pulse Rate 61 58 L Respiratory 18 Rate Blood Pressure Blood Pressure 147/84 [Left] O2 Sat by Pulse 100 Oximetry General appearance: Present: no acute distress, well-nourished - EENT Eyes: PERRL, EOM intact ENT: hearing intact, clear oral mucosa Ears: bilateral: normal - Neck Neck: supple, normal ROM - Respiratory Respiratory effort: normal Respiratory: bilateral: CTA - Breasts Breasts: normal - Cardiovascular Rhythm: regular Heart Sounds: Present: S1 & S2. Absent: gallop, rub Extremities: pulses intact, No edema, normal color, Full ROM - Gastrointestinal General gastrointestinal: Present: soft, non-tender, non-distended, normal bowel sounds - Genitourinary Male genitourinary: normal - Integumentary Integumentary: clear, warm, dry - Musculoskeletal Musculoskeletal: 1, strength equal bilaterally - Neurologic Neurologic: moves all extremities - Psychiatric Psychiatric: memory intact, appropriate mood/affect, intact judgment & insight - Labs CBC & Chem 7: 05/01/20 08:51 04/30/20 05:20 Labs: Abnormal lab results 05/01/20 Range/Units 08:51 Hgb 9.7 L (11.8-15.2) gm/dl Hct 30.0 L (35.5-45.6) % HEART Score - HEART Score EKG: Normal Age: 45-65 Risk factors: > 3 risk factors or hx of atherosclerotic disease Troponin: Troponin T 0.114 ng/mL (0.00-0.029) H* 04/30/20 14:27 Troponin: > 3x normal limit - Critical Actions Critical Actions: 4-6 pts:12-16.6% risk of adverse cardiac event. Should be admitted
[2020-05-01] MEDS: FAMOTIDINE 20 MG TAB PO SCH (21:26)
[2020-05-02] MEDS: oxyCODONE /ACETAMINOPHEN 5-325MG TAB PO PRN ×2 (00:20→21:17)
[2020-05-02] MEDS: SODIUM CHLORIDE 0.9% 1000 ML 1,000 ML IV SCH ×2 (02:07→13:24)
[2020-05-02] MEDS: BENZONATATE 100 MG CAP PO SCH ×3 (06:22→21:17)
[2020-05-02] MEDS: HEPARIN/ 0.45% NACL DRIP 25,000 UNIT/500 ML BAG IV SCH ×2 (10:02→13:25)
[2020-05-02] MEDS: NICOTINE 14 MG/24 HR PATCH TD SCH (11:39)
[2020-05-02] MEDS: VALSARTAN 160MG TAB PO SCH ×2 (11:41→21:16)
[2020-05-02] MEDS: carvediloL 25 MG TAB PO SCH ×2 (11:41→21:17)
[2020-05-02] MEDS: ASPIRIN EC 81 MG TAB PO SCH (11:43)
[2020-05-02] MEDS: FAMOTIDINE 20 MG TAB PO SCH ×2 (11:43→21:17)
[2020-05-02] MEDS: CLOPIDOGREL 75 MG TAB PO SCH (11:45)
--- NOTE | 2020-05-02 15:25 | Progress Note ---
Assessment and Plan - Patient Problems (1) Chest pain Current Visit: Yes Status: Acute Plan to address problem: Patient with a history of coronary artery disease and status post coronary stenting 6 months ago, fully compliant with dual antiplatelet therapy. He pr esents with somewhat atypical chest pain, with the cardiac isoenzymes troponin levels elevated in a nonspecific manner. Review of his records show that the troponin levels have been elevated consistently at the same levels since October 15, 2019. We will proceed with cardiac catheterization and diagnostic coronary angiography on Sunday. Subjective Date of service: 05/02/20 Principal diagnosis: chest pain Interval history: Patient is comfortable, no cardiac complaints, no further chest pain. His COVID-19 test was negative, and he is waiting for cardiac catheterization scheduled for Sunday. Objective Vital Signs Temp Pulse Resp BP Pulse Ox 05/02/20 11:41 67 05/02/20 08:23 97.6 F 54 L 20 173/81 100 05/02/20 05:56 98.1 F 54 L 20 143/63 93 05/02/20 00:13 97.4 F L 59 L 20 172/91 99 05/01/20 21:44 98.0 F 59 L 20 183/87 98 05/01/20 21:27 65 05/01/20 21:26 90 05/01/20 20:00 65 05/01/20 18:08 68 18 191/90 100 05/01/20 16:06 58 L - Physical Examination General: No Apparent Distress HEENT: Positive: PERRL Neck: Positive: neck supple Cardiac: Positive: Reg Rate and Rhythm Lungs: Positive: clear to auscultation Neuro: Positive: Grossly Intact Abdomen: Positive: Soft Skin: Positive: Clear Extremities: Absent: edema - Imaging and Cardiology EKG: report reviewed (Normal sinus rhythm no acute ST-T wave changes)
--- NOTE | 2020-05-02 15:53 | Progress Note ---
Assessment and Plan - Patient Problems (1) NSTEMI (non-ST elevated myocardial infarction) Current Visit: Yes Status: Acute Plan to address problem: Patient presents with non-Q wave [place]. Currently treated conservatively. Beta- kate antilipid and antiplatelet therapy. Patient return tests Covid negative. Cardiology able to proceed with additional studies. (2) CAD (coronary artery disease) Current Visit: Yes Status: Chronic Qualifiers: Coronary Disease-Associated Artery/Lesion type: unspecified vessel or lesion type [place] vs. transplanted heart: [place] heart Associated angina: with unspecified angina Qualified Code(s): I25.119 - Atherosclerotic heart disease of [place] coronary artery with unspecified angina pectoris Plan to address problem: Patient has been having persistent chest pain. Could be secondary to stress. Patient got into an argument with family members prior to discomfort. Remains chest pain-free at this particular time. (3) HTN (hypertension) Current Visit: Yes Status: Chronic Qualifiers: Hypertension type: essential hypertension Qualified Code(s): I10 - Essential (primary) hypertension Plan to address problem: Suboptimal control will add amlodipine 10 mg to Coreg and valsartan. (4) Hyperlipidemia associated with type 2 diabetes mellitus Current Visit: No Status: Acute Plan to address problem: We will recheck LDL goal less than 70. (5) COPD (chronic obstructive pulmonary disease) Current Visit: No Status: Chronic Qualifiers: Emphysema type: unspecified Plan to address problem: Minimal wheezing no shortness of breath at this particular time. Continue as needed nebulizer treatments. No wheezing at all much better. (6) Hyperlipidemia LDL goal <160 Current Visit: No Status: Chronic Plan to address problem: Statin goal LDL less than 70. (7) Tobacco use Current Visit: No Status: Chronic Plan to address problem: Patient explained the importance of smoking cessation and while his stents may be clogged again secondary to continued tobacco use. Subjective Date of service: 05/02/20 Principal diagnosis: chest pain Interval history: No new concerns remain chest pain-free at this time. Awaiting cardiac catheterization in a.m. Objective - Constitutional Vitals: Vital Signs - 12hr 05/02/20 05/02/20 05/02/20 05:56 08:23 11:41 Temperature 98.1 F 97.6 F Pulse Rate 54 L 54 L 67 Respiratory 20 20 Rate Blood Pressure 143/63 173/81 O2 Sat by Pulse 93 100 Oximetry General appearance: Present: no acute distress, well-nourished - EENT Eyes: PERRL, EOM intact ENT: hearing intact, clear oral mucosa Ears: bilateral: normal - Neck Neck: supple, normal ROM - Respiratory Respiratory effort: normal Respiratory: bilateral: CTA - Breasts Breasts: normal - Cardiovascular Rhythm: regular Heart Sounds: Present: S1 & S2. Absent: gallop, rub Extremities: pulses intact, No edema, normal color, Full ROM - Gastrointestinal General gastrointestinal: Present: soft, non-tender, non-distended, normal bowel sounds - Genitourinary Male genitourinary: normal - Integumentary Integumentary: clear, warm, dry - Musculoskeletal Musculoskeletal: 1, strength equal bilaterally - Neurologic Neurologic: moves all extremities - Psychiatric Psychiatric: memory intact, appropriate mood/affect, intact judgment & insight - Labs CBC & Chem 7: 05/01/20 08:51 04/30/20 05:20 HEART Score - HEART Score EKG: Normal Age: 45-65 Risk factors: > 3 risk factors or hx of atherosclerotic disease Troponin: Troponin T 0.114 ng/mL (0.00-0.029) H* 04/30/20 14:27 Troponin: > 3x normal limit - Critical Actions Critical Actions: 4-6 pts:12-16.6% risk of adverse cardiac event. Should be admitted
[2020-05-02] MEDS ORDERED: SODIUM CHLORIDE 0.9% 500 ML 500 ML IV SCH (16:00)
[2020-05-03] MEDS: SODIUM CHLORIDE 0.9% 1000 ML 1,000 ML IV SCH (03:10)
[2020-05-03] MEDS: BENZONATATE 100 MG CAP PO SCH ×3 (05:10→13:31)
[2020-05-03 06:02] LABS: Hematocrit 29.4 % (35.5-45.6); Hemoglobin 9.6 gm/dl (11.8-15.2)
[2020-05-03] MEDS ORDERED: CLOPIDOGREL 75 MG TAB ONE (08:56)
[2020-05-03] MEDS ORDERED: ASPIRIN EC 81 MG TAB PO ONE (08:56)
[2020-05-03] MEDS ORDERED: HEPARIN/NS 5000 UNIT/500ML 1,000 ML IR ONE (09:00)
[2020-05-03] MEDS: ASPIRIN EC 81 MG TAB PO SCH (09:01)
[2020-05-03] MEDS: CLOPIDOGREL 75 MG TAB PO SCH (09:02)
[2020-05-03] MEDS: MIDAZOLAM 2 MG/2 ML INJ ONE ×2 (09:39→09:47)
[2020-05-03] MEDS: LIDOCAINE (2%) 20 MG/1 ML VIAL 20 ML MDV INFILTRATI ONE ×2 (09:40→09:50)
[2020-05-03] MEDS: fentaNYL 100 MCG/2 ML INJ ONE ×2 (09:40→09:47)
[2020-05-03] MEDS: VERAPAMIL 5 MG/2 ML INJ ONE ×2 (09:41→09:51)
[2020-05-03] MEDS: HEPARIN 10,000 UNITS/10 ML VIAL ONE ×2 (09:41→09:51)
[2020-05-03] MEDS: NITROGLYCERIN SYRINGE 3 ML ONE ×2 (09:42→09:51)
[2020-05-03] MEDS ORDERED: hydrALAZINE 20 MG/1 ML INJ ONE (10:10)
[2020-05-03] MEDS: HYDROmorphone 1 MG/1 ML INJ IV PRN ×2 (11:20→16:30)
--- NOTE | 2020-05-03 12:23 | Event Note ---
Date: 05/03/20 Cardiac catheterization was completed via the right radial approach, no complications. We found widely patent mid circumflex artery stent, otherwise diffuse small vessel disease and no significant large vessel obstructive disease. Left ventricle systolic ejection fraction was normal at 55 to 60%. Patient is stable for cardiac discharge on medical therapy and aggressive risk factor modification, including uninterrupted dual oral antiplatelet therapy with aspirin and Plavix.
[2020-05-03] MEDS ORDERED: SODIUM CHLORIDE 0.9% 1000 ML 1,000 ML IV SCH (12:30)
[2020-05-03] MEDS ORDERED: HYDROcodone/ACETAMINOPHEN 5-325 MG TAB PO PRN (13:00)
[2020-05-03] MEDS ORDERED: traMADol 50 MG TAB PO PRN (13:00)
--- NOTE | 2020-05-03 13:12 | Cardiac Catherization Report ---
CARDIAC CATHETERIZATION REPORT REASON FOR PROCEDURE: The patient is a 64-year-old man with coronary artery disease who underwent coronary stenting of the mid circumflex artery 6 months ago. He has been fully compliant with his dual oral antiplatelet therapy. He presented to the hospital with chest pain and further invasive cardiac assessment was recommended. PROCEDURES: 1. Left heart catheterization. 2. Selective left and right coronary angiography. 3. Left ventricular angiography. 4. Sedation time, start 0946, end 1010. The patient was prepped and draped in a sterile fashion after informed consent. The right radial cath site was prepped and draped after a negative Chris's test. The right radial artery was entered using a Seldinger technique followed by placement of a 6-[place] hydrophilic sheath. Routine radial cocktail was administered via the sheath. Selective left and right coronary angiography was performed using a #3.5 left Selene and a #4 right Selene. Pigtail catheter was used for left ventricular angiography. The catheters were then removed, sheath removed, and hemostasis achieved using a TR band. The patient was returned to the postprocedure unit in stable condition. There were no complications. FINDINGS: HEMODYNAMICS: Left ventricular end-diastolic pressure was 27, following coronary angiography. Ascending aortic pressure was 188/92. There was no significant pressure gradient on pullback across the aortic valve. CORONARY ANGIOGRAPHY: The left main coronary artery was free of significant disease. The left anterior descending artery contained diffuse mild atherosclerosis of its proximal, mid, and distal segments. There was also diffuse mild atherosclerosis of the diagonal branches of the LAD. A small caliber ramus intermedius artery contained a 50-60% stenosis of its proximal to mid segment. Otherwise, this ramus also contained diffuse atherosclerosis involving its proximal, mid, and distal segments. The circumflex artery was notable for a stent in its mid AV groove segment. The stented segment was widely patent. A mid obtuse marginal that originated from the stented segment was also patent with minimal to no significant ostial compromise. More distally, there was a very small terminal branch of the circumflex artery, which contained an up to 90% stenosis at its origin. This is a very small, less than 2-mm terminal branch vessel, not suitable for revascularization. The right coronary artery was a large dominant vessel. There was diffuse atherosclerosis involving the proximal and mid vessel, with an up to 40-50% luminal stenosis of the mid segment. There was normal left ventricular systolic function, left ventricular ejection fraction 55-60%. CONCLUSION: 1. Multivessel coronary artery disease. 2. Widely patent mid circumflex artery stent. 3. Otherwise, diffuse small vessel disease. 4. Well preserved left ventricular systolic function, ejection fraction 55-60%. RECOMMENDATION: Aggressive risk factor modification and medical therapy. JOB# [id number] CA/NTS
[2020-05-03] MEDS: carvediloL 25 MG TAB PO SCH (13:25)
[2020-05-03] MEDS: FAMOTIDINE 20 MG TAB PO SCH (13:25)
[2020-05-03] MEDS: VALSARTAN 160MG TAB PO SCH (13:25)
[2020-05-03] MEDS: NICOTINE 14 MG/24 HR PATCH TD SCH (13:25)
--- NOTE | 2020-05-03 14:51 | Discharge Summary ---
Providers - Providers Date of Admission: 04/29/20 17:05 Date of discharge: 05/03/20 Attending physician: TASIA MCINTYRE 04/29/20 15:34 Consult to Cardiology [CONS] Routine Consulting Provider: DAVID YO Reason For Exam: NSTEMI 05/03/20 12:19 Consult to Cardiac Rehabilitation [CONS] Routine Reason For Exam: Cardiac Rehab Evaluation Primary care physician: ANIMAL ASSISTED THERAPIST Hospitalization Condition: Serious Pertinent studies: Cardiac catheterization showed patent mid circumflex artery stent and no significant large artery stenosis, ejection fraction 60%. Disposition: - TO HOME OR SELFCARE - Discharge Diagnoses (1) NSTEMI (non-ST elevated myocardial infarction) Status: Acute Comment: Patient chronically elevated cardiac isoenzymes. Had patent mid circumflex stent. Atypical chest pain noncardiac in origin. (2) CAD (coronary artery disease) Status: Chronic Qualifiers: Coronary Disease-Associated Artery/Lesion type: unspecified vessel or lesion type [place] vs. transplanted heart: [place] heart Associated angina: with unspecified angina Qualified Code(s): I25.119 - Atherosclerotic heart disease of [place] coronary artery with unspecified angina pectoris Comment: Patient history of coronary artery disease elevated troponin. Follow- up cardiac catheterization no significant large vessel disease. Treated with dual antiplatelet therapy with aspirin and Plavix. (3) HTN (hypertension) Status: Chronic Qualifiers: Hypertension type: essential hypertension Qualified Code(s): I10 - Essential (primary) hypertension Comment: Optimal control with blood pressure. (4) Hyperlipidemia associated with type 2 diabetes mellitus Status: Acute Comment: Continue statin goal LDL less than 70. (5) COPD (chronic obstructive pulmonary disease) Status: Chronic Qualifiers: Emphysema type: unspecified (6) Hyperlipidemia LDL goal <160 Status: Chronic (7) Tobacco use Status: Chronic Comment: NicoDerm patch he already has from last admission. Core Measure Documentation - Palliative Care Palliative Care/ Comfort Measures: Not Applicable - Core Measures Any of the following diagnoses?: none Exam - Constitutional Vitals: Temp Pulse Resp BP Pulse Ox 97.7 F 65 18 180/84 99 05/03/20 11:04 05/03/20 11:04 05/03/20 11:04 05/03/20 14:08 05/03/20 11:04 General appearance: Present: no acute distress, well-nourished - EENT Eyes: Present: PERRL ENT: hearing intact, clear oral mucosa - Neck Neck: Present: supple, normal ROM - Respiratory Respiratory effort: normal Respiratory: bilateral: CTA - Cardiovascular Heart Sounds: Present: S1 & S2. Absent: rub, click - Extremities Extremities: pulses symmetrical, No edema Peripheral Pulses: within normal limits - Abdominal General gastrointestinal: Present: soft, non-tender, non-distended, normal bowel sounds Male genitourinary: Present: normal - Integumentary Integumentary: Present: clear, warm, dry - Musculoskeletal Musculoskeletal: gait normal, strength equal bilaterally - Psychiatric Psychiatric: appropriate mood/affect, intact judgment & insight - Neurologic Neurologic: CNII-XII intact, moves all extremities Plan Activity: no restrictions Weight Bearing Status: Full Weight Bearing Diet: low cholesterol, low salt Follow up with: PRIMARY CARE,MD [Primary Care Provider] - 7 Days Forms: AMA Form, CardCath PCI D/C Instructions Prescriptions: carvediloL [Coreg] 12.5 mg PO BID #60 tablet Valsartan [Diovan] 160 mg PO Q12H #60 tablet Nicotine [Habitrol] 14 mg TD QDAY #14 patch ISOSORBIDE MONOnitrate [Imdur ER] 30 mg PO QDAY #30 tablet Famotidine [Pepcid] 20 mg PO BID #30 tablet Clopidogrel [Plavix] 75 mg PO QDAY #30 tablet traMADoL [Ultram 50 MG tab] 50 mg PO Q4H PRN #30 tablet PRN Reason: Pain, Mild (1-3)
[2020-05-03 17:26] VITALS: BP 140/81
== END 2020-05-03 18:58 | disposition home or self-care (01) | DRG 282 ==
LOC: ED 12:31 → 4A 17:05
PROVIDERS: ADMIT Internal Medicine; ATTEND Internal Medicine
PROC: 4A023N7 Measurement of Cardiac Sampling and Pressure, Left Heart, Percutaneous Approach (ICD-10-PCS; principal; 2020-05-03)
PROC: B2111ZZ Fluoroscopy of Multiple Coronary Arteries using Low Osmolar Contrast (ICD-10-PCS; 2020-05-03)
PROC: B2151ZZ Fluoroscopy of Left Heart using Low Osmolar Contrast (ICD-10-PCS; 2020-05-03)
DX: I21.A1 Myocardial infarction type 2 (principal); Z20.828 Contact with and (suspected) exposure to other viral communicable diseases; I25.10 Atherosclerotic heart disease of native coronary artery without angina pectoris; Z88.8 Allergy status to other drugs, medicaments and biological substances; I10 Essential (primary) hypertension; B19.20 Unspecified viral hepatitis C without hepatic coma; Z79.82 Long term (current) use of aspirin; D64.9 Anemia, unspecified; E78.5 Hyperlipidemia, unspecified; J44.9 Chronic obstructive pulmonary disease, unspecified
CPT/HCPCS: 36415; 71046; 80048; 80053; 80061; 82607; 82747; 82962; 83036; 83550; 84484; 85007; 85014; 85018; 85025; 85049; 85520; 85610; 85730; 93005; 93458; 99406; G0378; A9270-GY; C1894; J0360; J1170; J1644; J2250; J2765; J3010; J7030; J7040; Q9967; U0003

== ENCOUNTER 2021-09-29 05:01 | Emergency (ER) | payer BC, OTHER ==
[2021-09-29] MEDS ORDERED: KETOROLAC 10 MG TAB PO ONE (10:15)
[2021-09-29] MEDS ORDERED: HYDROcodone/ACETAMINOPHEN 10-325MG TAB PO ONE (10:15)
--- NOTE | 2021-09-29 10:18 | Emergency Department Report ---
ED Back Pain/Injury HPI - General Chief Complaint: Back Pain/Injury Stated Complaint: BACK,KNEE,SHOULDER,NECK PAIN Time Seen by Provider: 09/29/21 09:55 Source: patient Limitations: No Limitations - History of Present Illness Initial Comments: 66-year-old male presents to the ER today with complaints of back injury. Patient states that yesterday he was at work. He states that he was pushing all of the big dumpster starts typically located outside when he suddenly felt a pop in his lower back. Since then he has been having severe pain in his lower back he is also been having pain in his lower neck upper thoracic back area but more so in the lower back. Patient reports increased pain with positions, ambulation and movement. He denies any bowel or bladder incontinence, upper or lower extremity weakness, numbness or tingling. He denies any saddle anesthesia. He denies any abdominal pain or chest pain. He states that his never had any issues with his spine in the past. MD Complaint: back pain, back injury -: days(s) (1) - Related Data Home Medications Medication Instructions Recorded Confirmed Last Taken Acetaminophen [Tylenol] 2 tab PO PRN PRN 10/17/19 05/01/20 2 Days Ago ~04/29/20 Previous Rx's Medication Instructions Recorded Last Taken Type Albuterol Mdi (or & Nicu Only) 2 puff IH QID PRN #8.5 gram 09/12/19 2 Days Ago Rx [ProAir HFA Inhaler] ~04/29/20 Benzonatate [Tessalon Perles] 100 mg PO Q8HR #30 capsule 09/12/19 2 Days Ago Rx ~04/29/20 Aspirin EC [Ecotrin] 325 mg PO QDAY #30 tablet. 10/17/19 2 Days Ago Rx ~04/29/20 AtorvaSTATin [Lipitor] 80 mg PO QHS #30 tablet 10/17/19 2 Days Ago Rx ~04/29/20 Clopidogrel [Plavix] 75 mg PO QDAY #30 tablet 10/17/19 2 Days Ago Rx ~04/29/20 traMADoL [Ultram 50 MG tab] 50 mg PO Q6H PRN #20 tablet 10/17/19 2 Days Ago Rx ~04/29/20 Acetaminophen [Acetaminophen TAB] 650 mg PO Q4H PRN tablet 05/03/20 Unknown Rx Aspirin EC [Halfprin EC] 81 mg PO QDAY tablet 05/03/20 Unknown Rx Clopidogrel [Plavix] 75 mg PO QDAY #30 tablet 05/03/20 Unknown Rx Famotidine [Pepcid] 20 mg PO BID #30 tablet 05/03/20 Unknown Rx ISOSORBIDE MONOnitrate [Imdur ER] 30 mg PO QDAY #30 tablet 05/03/20 Unknown Rx Nicotine [Habitrol] 14 mg TD QDAY #14 patch 05/03/20 Unknown Rx Valsartan [Diovan] 160 mg PO Q12H #60 tablet 05/03/20 Unknown Rx carvediloL [Coreg] 12.5 mg PO BID #60 tablet 05/03/20 Unknown Rx traMADoL [Ultram 50 MG tab] 50 mg PO Q4H PRN #30 tablet 05/03/20 Unknown Rx Ibuprofen [Motrin] 600 mg PO Q8H PRN #20 tablet 09/29/21 Unknown Rx methOCARBAMOL [Robaxin TAB] 500 mg PO Q8H PRN #30 09/29/21 Unknown Rx Allergies Allergy/AdvReac Type Severity Reaction Status Date / Time clarithromycin [From Biaxin] Allergy Unknown Verified 04/28/18 16:08 ED Review of Systems ROS: Stated complaint: BACK,KNEE,SHOULDER,NECK PAIN Other details as noted in HPI Comment: All other systems reviewed and negative Constitutional: denies: chills, fever Eyes: denies: eye pain, eye discharge, vision change ENT: denies: ear pain, throat pain Respiratory: denies: cough, shortness of breath, SOB with exertion, SOB at rest, wheezing Cardiovascular: denies: chest pain, palpitations, dyspnea on exertion, edema, syncope, paroxysmal nocturnal dyspnea Endocrine: no symptoms reported Gastrointestinal: denies: abdominal pain, nausea, diarrhea, constipation, hematemesis, hematochezia Genitourinary: denies: urgency, dysuria Musculoskeletal: back pain, arthralgia, myalgia Skin: denies: rash, lesions, change in color, change in hair/nails, pruritus Neurological: denies: headache, weakness, numbness, paresthesias, confusion, abnormal gait, vertigo Psychiatric: denies: anxiety, depression, auditory hallucinations, visual hallucinations, homicidal thoughts, suicidal thoughts ED Past Medical Hx - Past Medical History Hx Hypertension: Yes Hx Heart Attack/AMI: Yes Hx Congestive Heart Failure: No Hx Diabetes: No Hx Liver Disease: Yes (Hep C) Hx Asthma: No Hx COPD: No Hx HIV: No Additional medical history: recurrent left knee pain - Surgical History Hx Coronary Stent: Yes - Social History Smoking Status: Current Every Day Smoker - Medications Home Medications: Home Medications Medication Instructions Recorded Confirmed Last Taken Type Albuterol Mdi (or & Nicu Only) 2 puff IH QID PRN #8.5 gram 09/12/19 05/01/20 2 Days Ago Rx [ProAir HFA Inhaler] ~04/29/20 Benzonatate [Tessalon Perles] 100 mg PO Q8HR #30 capsule 09/12/19 05/01/20 2 Days Ago Rx ~04/29/20 Acetaminophen [Tylenol] 2 tab PO PRN PRN 10/17/19 05/01/20 2 Days Ago History ~04/29/20 Aspirin EC [Ecotrin] 325 mg PO QDAY #30 tablet. 10/17/19 05/01/20 2 Days Ago Rx ~04/29/20 AtorvaSTATin [Lipitor] 80 mg PO QHS #30 tablet 10/17/19 05/01/20 2 Days Ago Rx ~04/29/20 Clopidogrel [Plavix] 75 mg PO QDAY #30 tablet 10/17/19 05/01/20 2 Days Ago Rx ~04/29/20 traMADoL [Ultram 50 MG tab] 50 mg PO Q6H PRN #20 tablet 10/17/19 05/01/20 2 Days Ago Rx ~04/29/20 Acetaminophen [Acetaminophen TAB] 650 mg PO Q4H PRN tablet 05/03/20 Unknown Rx Aspirin EC [Halfprin EC] 81 mg PO QDAY tablet 05/03/20 Unknown Rx Clopidogrel [Plavix] 75 mg PO QDAY #30 tablet 05/03/20 Unknown Rx Famotidine [Pepcid] 20 mg PO BID #30 tablet 05/03/20 Unknown Rx ISOSORBIDE MONOnitrate [Imdur ER] 30 mg PO QDAY #30 tablet 05/03/20 Unknown Rx Nicotine [Habitrol] 14 mg TD QDAY #14 patch 05/03/20 Unknown Rx Valsartan [Diovan] 160 mg PO Q12H #60 tablet 10/26/20 Unknown Rx carvediloL [Coreg] 12.5 mg PO BID #60 tablet 05/03/20 Unknown Rx traMADoL [Ultram 50 MG tab] 50 mg PO Q4H PRN #30 tablet 05/03/20 Unknown Rx Ibuprofen [Motrin] 600 mg PO Q8H PRN #20 tablet 09/29/21 Unknown Rx methOCARBAMOL [Robaxin TAB] 500 mg PO Q8H PRN #30 09/29/21 Unknown Rx ED Physical Exam - General Limitations: No Limitations General appearance: alert, in no apparent distress - Head Head exam: Present: atraumatic, normocephalic, normal inspection - Eye Eye exam: Present: normal appearance, PERRL, EOMI Pupils: Present: normal accommodation - Neck Neck exam: Present: normal inspection, tenderness (Mild ttp muscle soft tissue tenderness noted along lower cervical spine area;No deformity, ecchymosis, rash noted; No step off), full ROM. Absent: meningismus - Respiratory Respiratory exam: Present: normal lung sounds bilaterally. Absent: respiratory distress, wheezes, rales, rhonchi, stridor - Cardiovascular Cardiovascular Exam: Present: regular rate, normal rhythm, normal heart sounds - GI/Abdominal GI/Abdominal exam: Present: soft. Absent: distended, tenderness, guarding, rebound, rigid - Back Exam Back exam: Present: vertebral tenderness (severe point tenderness to palpation upper lumbar spine, lower thoracic spine. No apparent deformity or step off; no swelling bruising or erythema noted. ) - Neurological Exam Neurological exam: Present: alert, oriented X3, CN II-XII intact, normal gait. Absent: motor sensory deficit - Expanded Neurological Exam Expanded Motor strength exam: RUE: 5, LUE: 5, RLE: 5, LLE: 5 Best Eye Response ([place]): (4) open spontaneously Best Motor Response ([place]): (6) obeys commands Best Verbal Response ([place]): (5) oriented [place] Total: 15 - Psychiatric Psychiatric exam: Present: normal affect, normal mood - Skin Skin exam: Present: intact ED Course Vital Signs 09/29/21 05:29 Temperature 98.9 F Pulse Rate 85 Respiratory 18 Rate Blood Pressure 168/90 O2 Sat by Pulse 99 Oximetry ED Medical Decision Making - Radiology Data Radiology results: report reviewed Patient: DOMINGUEZ RODAS MR#: [id number] : 1955 Acct:[id number] Age/Sex: 65 / M ADM Date: 09/29/21 Loc: ED Attending Dr: Ordering Physician: SACHIN COLEY Date of Service: 09/29/21 Procedure(s): CT lumbar spine wo con Accession Number(s): [id number] cc: SACHIN COLEY CT LUMBAR SPINE: 09/29/2021 INDICATION / CLINICAL INFORMATION: Severe upper lumbar pain;felt pop while moving. COMPARISON: None available. FINDINGS: CT images of the lumbar spine were obtained. Images are evaluated in the axial, coronal, and sagittal planes. There is no evidence of acute abnormality. Mild left convex scoliosis of the lumbar spine is present. Vertebral body height is well preserved at all levels. There is no evidence of osseous disruption. LEVEL BY LEVEL ANALYSIS: L5-S1: Disc space narrowing and degenerative endplate irregularity associated with mild canal narrowing. There is partial sacralization of the right lateral mass, with pseudoarthrosis of the right transverse process of L5 and the upper margin of the sacrum. Moderate bilateral foraminal narrowing. L4-5: Disc space narrowing and mild diffuse disc bulging. Mild facet degenerative changes. L3-4: Mild diffuse disc bulging and moderate facet degenerative changes. Mild central canal narrowing. There is bilateral foraminal narrowing, more pronounced on the right. L2-3: Unremarkable. L1-2: Unremarkable. Incidental note is made of corticated linear lucency thro ugh the left L1 transverse process, consistent with remote injury or developmental anomaly. T12-L1: Unremarkable. PARASPINAL STRUCTURES: Unremarkable. IMPRESSION: No evidence of acute abnormality. All CT scans at this location are performed using dose reduction to ALARA by means of automated exposure control. Signer Name: Chris Vilchis MD Signed: 09/29/2021 11:21 AM Workstation Name: [id number] Transcribed By: AO Dictated By: Chris Vilchis MD Electronically Authenticated By: Chris Vilchis MD Signed Date/Time: 09/29/21 1121 DD/ 1118 TD/TT: Critical care attestation.: If time is entered above; I have spent that time in minutes in the direct care of this critically ill patient, excluding procedure time. ED Disposition Clinical Impression: Strain of back, Degenerative joint disease of spine, Cervical strain Disposition: 01 HOME / SELF CARE / HOMELESS Is pt being admited?: No Does the pt Need Aspirin: No Condition: Stable Instructions: Muscle Strain, Ehhn-ur-Ucin, Osteoarthritis, Back Injury Prevention, Cervical Sprain Additional Instructions: Take the Motrin and the robaxin (muscle relaxer) as prescribed to help with pain. Follow up with PCP and or Orthospine specialist. Return to ED if worse. Prescriptions: Ibuprofen [Motrin] 600 mg PO Q8H PRN #20 tablet PRN Reason: Pain methOCARBAMOL [Robaxin TAB] 500 mg PO Q8H PRN #30 PRN Reason: back spasm Referrals: TASIA MCINTYRE MD [Staff Physician] - 3-5 Days [facility] [Provider Group] - 3-5 Days Time of Disposition: 12:01
--- NOTE | 2021-09-29 11:25 | Cat Scan Report ---
CT LUMBAR SPINE: 09/29/2021 INDICATION / CLINICAL INFORMATION: Severe upper lumbar pain;felt pop while moving. COMPARISON: None available. FINDINGS: CT images of the lumbar spine were obtained. Images are evaluated in the axial, coronal, and sagittal planes. There is no evidence of acute abnormality. Mild left convex scoliosis of the lumbar spine is present. Vertebral body height is well preserved at all levels. There is no evidence of osseous disruption. LEVEL BY LEVEL ANALYSIS: L5-S1: Disc space narrowing and degenerative endplate irregularity associated with mild canal narrow ing. There is partial sacralization of the right lateral mass, with pseudoarthrosis of the right epps sverse process of L5 and the upper margin of the sacrum. Moderate bilateral foraminal narrowing. L4-5: Disc space narrowing and mild diffuse disc bulging. Mild facet degenerative changes. L3-4: Mild diffuse disc bulging and moderate facet degenerative changes. Mild central canal narrowing . There is bilateral foraminal narrowing, more pronounced on the right. L2-3: Unremarkable. L1-2: Unremarkable. Incidental note is made of corticated linear lucency through the left L1 transver se process, consistent with remote injury or developmental anomaly. T12-L1: Unremarkable. PARASPINAL STRUCTURES: Unremarkable. IMPRESSION: No evidence of acute abnormality. All CT scans at this location are performed using dose reduction to ALARA by means of automated expos ure control. Signer Name: Chris Vilchis MD Signed: 09/29/2021 11:21 AM Workstation Name: [id number]
--- NOTE | 2021-09-29 11:27 | Cat Scan Report ---
CT THORACIC SPINE: 09/29/2021 INDICATION / CLINICAL INFORMATION: [place] pop in back moving dumpster/severe pain. COMPARISON: None available. FINDINGS: CT images of the thoracic spine were obtained. Images are evaluated in the axial, coronal, and sagitt al planes. There is no evidence of acute abnormality. Vertebral body height and alignment is well preserved. Continuous bridging osteophytes are present along the right anterolateral margin of the vertebral bod ies, extending from T4 through T11. There is partial fusion of the T10-11 disc space, most consistent with developmental anomaly. Disc sp demian narrowing is present at all levels in the thoracic spine. There is no evidence of canal stenosis. PARASPINAL STRUCTURES: Unremarkable IMPRESSION: No acute abnormality. All CT scans at this location are performed using dose reduction to ALARA by means of automated expos ure control. Signer Name: Chris Vilchis MD Signed: 09/29/2021 11:23 AM Workstation Name: [id number]
[2021-09-29 12:12] VITALS: BP 160/88
== END 2021-09-29 12:24 | disposition home or self-care (01) ==
LOC: ED 05:01
DX: S16.1XXA Strain of muscle, fascia and tendon at neck level, initial encounter (principal); S39.012A Strain of muscle, fascia and tendon of lower back, initial encounter; M51.36 Other intervertebral disc degeneration, lumbar region; M50.30 Other cervical disc degeneration, unspecified cervical region; I10 Essential (primary) hypertension; F17.200 Nicotine dependence, unspecified, uncomplicated; Z88.1 Allergy status to other antibiotic agents; Z79.899 Other long term (current) drug therapy
CPT/HCPCS: 72128; 72131; 99283

== ENCOUNTER 2021-10-04 07:03 | Emergency (ER) | payer BC, OTHER ==
[2021-10-04 07:28] VITALS: BP 151/94
--- NOTE | 2021-10-04 07:32 | Emergency Department Report ---
ED Back Pain/Injury HPI - General Chief Complaint: Back Pain/Injury Stated Complaint: BACK PAIN Time Seen by Provider: 10/04/21 07:26 Source: patient Limitations: No Limitations - History of Present Illness Initial Comments: Per prior encounter HPI on 09/29 66-year-old male presents to the ER today with complaints of back injury. Patient states that yesterday he was at work. He states that he was pushing all of the big dumpster starts typically located outside when he suddenly felt a pop in his lower back. Since then he has been having severe pain in his lower back he is also been having pain in his lower neck upper thoracic back area but more so in the lower back. Patient reports increased pain with positions, ambulation and movement. He denies any bowel or bladder incontinence, upper or lower extremity weakness, numbness or tingling. He denies any saddle anesthesia. He denies any abdominal pain or chest pain. He states that his never had any issues with his spine in the past. Patient comes to the ER today complaining of ongoing pain. Is worse with movement. He did not get his medications filled as given at his prior ER visit. Patient is neuro intact, ambulatory with no focal deficit. I have educated the patient about getting his medications filled so that he could treat the problem. Patient is repetitively asking for a work note for a couple weeks off work. I have explained to him that we do not give extended work notes in the emergency room that he needs to follow-up with an orthopedic doctor or his Workmen's Comp. doctor to be given extensive time off for for a modified duty restrictions MD Complaint: back pain Similar Symptoms Previously: Yes Place: work Radiation: none Severity: moderate Consistency: intermittent Improves With: immobilization, other (Not working) Worsens With: movement - Related Data Home Medications Medication Instructions Recorded Confirmed Last Taken Acetaminophen [Tylenol] 2 tab PO PRN PRN 10/17/19 05/01/20 2 Days Ago ~04/29/20 Previous Rx's Medication Instructions Recorded Last Taken Type Albuterol Mdi (or & Nicu Only) 2 puff IH QID PRN #8.5 gram 09/12/19 2 Days Ago Rx [ProAir HFA Inhaler] ~04/29/20 Benzonatate [Tessalon Perles] 100 mg PO Q8HR #30 capsule 03/06/20 2 Days Ago Rx ~04/29/20 Aspirin EC [Ecotrin] 325 mg PO QDAY #30 tablet. 10/17/19 2 Days Ago Rx ~04/29/20 AtorvaSTATin [Lipitor] 80 mg PO QHS #30 tablet 10/17/19 2 Days Ago Rx ~04/29/20 Clopidogrel [Plavix] 75 mg PO QDAY #30 tablet 10/17/19 2 Days Ago Rx ~04/29/20 traMADoL [Ultram 50 MG tab] 50 mg PO Q6H PRN #20 tablet 10/17/19 2 Days Ago Rx ~04/29/20 Acetaminophen [Acetaminophen TAB] 650 mg PO Q4H PRN tablet 05/03/20 Unknown Rx Aspirin EC [Halfprin EC] 81 mg PO QDAY tablet 05/03/20 Unknown Rx Clopidogrel [Plavix] 75 mg PO QDAY #30 tablet 05/03/20 Unknown Rx Famotidine [Pepcid] 20 mg PO BID #30 tablet 05/03/20 Unknown Rx ISOSORBIDE MONOnitrate [Imdur ER] 30 mg PO QDAY #30 tablet 05/03/20 Unknown Rx Nicotine [Habitrol] 14 mg TD QDAY #14 patch 05/03/20 Unknown Rx Valsartan [Diovan] 160 mg PO Q12H #60 tablet 05/03/20 Unknown Rx carvediloL [Coreg] 12.5 mg PO BID #60 tablet 05/03/20 Unknown Rx traMADoL [Ultram 50 MG tab] 50 mg PO Q4H PRN #30 tablet 05/03/20 Unknown Rx Ibuprofen [Motrin] 600 mg PO Q8H PRN #20 tablet 09/29/21 Unknown Rx methOCARBAMOL [Robaxin TAB] 500 mg PO Q8H PRN #30 09/29/21 Unknown Rx Allergies Allergy/AdvReac Type Severity Reaction Status Date / Time clarithromycin [From Biaxin] Allergy Unknown Verified 10/04/21 07:28 ED Review of Systems ROS: Stated complaint: BACK PAIN Other details as noted in HPI Comment: All other systems reviewed and negative ED Past Medical Hx - Past Medical History Hx Hypertension: Yes Hx Heart Attack/AMI: Yes Hx Congestive Heart Failure: No Hx Diabetes: No Hx Liver Disease: Yes (Hep C) Hx Asthma: No Hx COPD: No Hx HIV: No Additional medical history: recurrent left knee pain - Surgical History Hx Coronary Stent: Yes - Family History Family history: no significant - Social History Smoking Status: Current Every Day Smoker - Medications Home Medications: Home Medications Medication Instructions Recorded Confirmed Last Taken Type Albuterol Mdi (or & Nicu Only) 2 puff IH QID PRN #8.5 gram 09/12/19 05/01/20 2 Days Ago Rx [ProAir HFA Inhaler] ~04/29/20 Benzonatate [Tessalon Perles] 100 mg PO Q8HR #30 capsule 09/12/19 05/01/20 2 Days Ago Rx ~04/29/20 Acetaminophen [Tylenol] 2 tab PO PRN PRN 10/17/19 05/01/20 2 Days Ago History ~04/29/20 Aspirin EC [Ecotrin] 325 mg PO QDAY #30 tablet. 10/17/19 05/01/20 2 Days Ago Rx ~04/29/20 AtorvaSTATin [Lipitor] 80 mg PO QHS #30 tablet 10/17/19 05/01/20 2 Days Ago Rx ~04/29/20 Clopidogrel [Plavix] 75 mg PO QDAY #30 tablet 10/17/19 05/01/20 2 Days Ago Rx ~04/29/20 traMADoL [Ultram 50 MG tab] 50 mg PO Q6H PRN #20 tablet 10/17/19 05/01/20 2 Days Ago Rx ~04/29/20 Acetaminophen [Acetaminophen TAB] 650 mg PO Q4H PRN tablet 05/03/20 Unknown Rx Aspirin EC [Halfprin EC] 81 mg PO QDAY tablet 05/03/20 Unknown Rx Clopidogrel [Plavix] 75 mg PO QDAY #30 tablet 05/03/20 Unknown Rx Famotidine [Pepcid] 20 mg PO BID #30 tablet 05/03/20 Unknown Rx ISOSORBIDE MONOnitrate [Imdur ER] 30 mg PO QDAY #30 tablet 05/03/20 Unknown Rx Nicotine [Habitrol] 14 mg TD QDAY #14 patch 05/03/20 Unknown Rx Valsartan [Diovan] 160 mg PO Q12H #60 tablet 05/03/20 Unknown Rx carvediloL [Coreg] 12.5 mg PO BID #60 tablet 05/03/20 Unknown Rx traMADoL [Ultram 50 MG tab] 50 mg PO Q4H PRN #30 tablet 05/03/20 Unknown Rx Ibuprofen [Motrin] 600 mg PO Q8H PRN #20 tablet 09/29/21 Unknown Rx methOCARBAMOL [Robaxin TAB] 500 mg PO Q8H PRN #30 09/29/21 Unknown Rx ED Physical Exam - General Limitations: No Limitations General appearance: alert, in no apparent distress - Head Head exam: Present: atraumatic, normocephalic - Eye Eye exam: Present: normal appearance - ENT ENT exam: Present: mucous membranes moist - Neck Neck exam: Present: normal inspection - Respiratory Respiratory exam: Present: normal lung sounds bilaterally. Absent: respiratory distress - Cardiovascular Cardiovascular Exam: Present: regular rate, normal rhythm. Absent: systolic murmur, diastolic murmur, rubs, gallop - GI/Abdominal GI/Abdominal exam: Present: soft, normal bowel sounds - Rectal Rectal exam: Present: deferred - Extremities Exam Extremities exam: Present: normal inspection - Back Exam Back exam: Present: normal inspection - Neurological Exam Neurological exam: Present: alert, oriented X3 - Psychiatric Psychiatric exam: Present: normal affect, normal mood - Skin Skin exam: Present: warm, dry, intact, normal color. Absent: rash ED Course Vital Signs 10/04/21 07:26 Temperature 97.5 F L Pulse Rate 100 H Respiratory 14 Rate Blood Pressure 151/94 [Left] O2 Sat by Pulse 98 Oximetry - Reevaluation(s) Reevaluation #1: 10/04/21 07:51 Heart rate 90 on provider exam ED Medical Decision Making - Medical Decision Making Vital Signs 10/04/21 07:26 Temperature 97.5 F L Pulse Rate 100 H Respiratory 14 Rate Blood Pressure 151/94 [Left] O2 Sat by Pulse 98 Oximetry Patient is neuro intact. His prior ER visit has been reviewed. Patient states he is suing his employer and that he needs a work note. Patient states he still has not picked up his medications as given at his prior visit. On discharge patient is ambulatory, neuro intact and no acute distress. He states he will go get his medications and follow-up as instructed. - Differential Diagnosis Acute on chronic back pain Critical care attestation.: If time is entered above; I have spent that time in minutes in the direct care of this critically ill patient, excluding procedure time. ED Disposition Clinical Impression: Strain of back Qualifiers: Encounter type: sequela Qualified Code(s): S39.012S - Strain of muscle, fascia and tendon of lower back, sequela Disposition: 01 HOME / SELF CARE / HOMELESS Is pt being admited?: No Does the pt Need Aspirin: No Condition: Stable Referrals: PERICO ZHENG MD [Primary Care Provider] - 3-5 Days MUNDO HEARN MD [Staff Physician] - 3-5 Days Forms: Work/School Release Form(ED) Time of Disposition: 07:29
== END 2021-10-04 07:40 | disposition home or self-care (01) ==
LOC: ED 07:03
DX: S29.012A Strain of muscle and tendon of back wall of thorax, initial encounter (principal); I10 Essential (primary) hypertension; I21.9 Acute myocardial infarction, unspecified; K76.89 Other specified diseases of liver; Z79.899 Other long term (current) drug therapy; Z98.890 Other specified postprocedural states; Z91.09 Other allergy status, other than to drugs and biological substances; F17.200 Nicotine dependence, unspecified, uncomplicated; Y93.89 Activity, other specified; Y92.89 Other specified places as the place of occurrence of the external cause; Y99.0 Civilian activity done for income or pay
CPT/HCPCS: 99282